=== PATIENT | female | born 1995 | race Caucasian/White ===

== ENCOUNTER 2016-07-26 09:02 | Emergency (ER) | payer BC, MEDICAID ==
[2016-07-26] MEDS ORDERED: DEXAMETHASONE 10 MG/ML VIAL PO STA (09:19)
[2016-07-26] MEDS ORDERED: DEXAMETHASONE 10 MG/ML VIAL ONE (09:21)
[2016-07-26] MEDS ORDERED: CHERRY SYRUP 10 ML UDC PO ONE (09:21)
== END 2016-07-26 09:50 | disposition home or self-care (01) ==
DX: J02.0 Streptococcal pharyngitis (principal); H92.02 Otalgia, left ear; J34.89 Other specified disorders of nose and nasal sinuses; Z87.891 Personal history of nicotine dependence
CPT/HCPCS: 87430; 99283; A9270

== ENCOUNTER 2018-06-08 15:23 | Emergency (ER) | payer BC, MEDICAID ==
[2018-06-08 15:37] VITALS: BP 123/64
[2018-06-08] MEDS ORDERED: TETANUS/DIPHTHERIA/PERTUSSIS 0.5 ML SYRINGE IM ONE (16:06)
--- NOTE | 2018-06-08 16:09 | ED Physician Documentation ---
PD HPI OPHTHO - Stated complaint Stated Complaint: LT EYE INJURY - Chief complaint Chief Complaint: Heent - History obtained from History obtained from: Patient - History of Present Illness Timing - onset: Last night Location: Left Contributing factors: Blunt trauma Similar symptoms before: Has not had sx before - Additional information Additional information: The patient is a 23-year-old female who hit her left eye on a bookshelf last night when she sat up abruptly in her bed. She presents now with ecchymosis in the left periorbital region. She denies any change in her visual acuity. She denies headache, nausea or vomiting. Tetanus status is unknown. 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 : None HEENT: None Psych: Depression Musculoskeletal: None Derm: None - Past Surgical History Past Surgical History: No - Present Medications Home Medications: Ambulatory Orders Medication Instructions Recorded Confirmed No Known Home Medications 06/08/18 06/08/18 - Allergies Allergies/Adverse Reactions: Allergies Allergy/AdvReac Type Severity Reaction Status Date / Time No Known Drug Allergies Allergy Verified 06/08/18 15:37 - Social History Does the pt smoke?: Yes Smoking Status: Current every day smoker Does the pt drink ETOH?: No Does the pt have substance abuse?: No - Immunizations Immunizations are current?: No Immunizations: TDAP >10years/unknown - POLST Patient has POLST: No PD ED PE NORMAL - Vitals Vital signs reviewed: Yes (Normal) - General General: Alert and oriented X 3, Well developed/nourished - HEENT HEENT: PERRL, EOMI, Other (Left periorbital ecchymosis, with abrasion of the left upper eyelid. There is lateral sub-scleral hemorrhage. Pupils are equal round reactive to light, extraocular movements intact. Visual acuity is 20/40 in each eye. (She normally wears glasses, but does not have them with her today.)) - Neck Neck: No bony TTP - Respiratory Respiratory: No respiratory distress - Derm Derm: No rash - Neuro Neuro: Alert and oriented X 3, No motor deficit, Normal speech Results - Vitals Vitals: Oxygen O2 Source Room air PD MEDICAL DECISION MAKING - ED course Complexity details: considered differential, d/w patient ED course: The patient's presentation is significant for contusion to the left eye, with abrasion of the left upper eyelid, and subscleral hemorrhage. There is no clinical evidence of intraocular injury, and no evidence of facial bone injury. Treatment in the emergency department included administration of tetanus booster. 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 Departure - Departure Disposition: 01 Home, Self Care Clinical Impression: Scleral hemorrhage of left eye Periorbital contusion of left eye Qualifiers: Encounter type: initial encounter Qualified Code(s): S05.12XA - Contusion of eyeball and orbital tissues, left eye, initial encounter Condition: Stable Instructions: ED Contusion Eye Follow-Up: [facility] [Provider Group] Comments: You can use Tylenol or ibuprofen if needed for discomfort. Follow-up with your primary physician, or return to the emergency department, if you develop increasing redness or swelling around your eye, impaired visual acuity, or otherwise worsening symptoms. Discharge Date/Time: 06/08/18 16:21
== END 2018-06-08 16:21 | disposition home or self-care (01) ==
LOC: ED 15:23
DX: H57.89 Other specified disorders of eye and adnexa (principal); S00.212A Abrasion of left eyelid and periocular area, initial encounter; W22.09XA Striking against other stationary object, initial encounter; Z23 Encounter for immunization
CPT/HCPCS: 90471; 99282; 99283

== ENCOUNTER 2019-07-06 22:04 | Emergency (ER) | payer BC, MEDICAID ==
[2019-07-06 22:14] VITALS: BP 119/81
[2019-07-06 22:30] LABS: RAPID STREP SCREEN Negative (Negative)
== END 2019-07-06 23:40 | disposition left against medical advice (07) ==
LOC: ED 22:04
DX: Z53.21 Procedure and treatment not carried out due to patient leaving prior to being seen by health care provider (principal)
CPT/HCPCS: 87070; 87430

== ENCOUNTER 2019-10-30 04:28 | Emergency (ER) | payer BC, MEDICAID ==
--- NOTE | 2019-10-30 05:01 | ED Physician Documentation ---
PD HPI ABD PAIN - Stated complaint Stated Complaint: ABD PX - Chief complaint Chief Complaint: Abd Pain - History obtained from History obtained from: Patient - History of Present Illness Timing - onset: Today Timing - duration: Minutes Timing - details: Abrupt onset, Still present Quality: Cramping, Sharp, Pain Location: LUQ Radiation: Chest Improved by: Other (nothing) Worsened by: Breathing Associated symptoms: No: Fever, Nausea, Vomiting, Hematemesis, Diarrhea, Constipation Similar symptoms before: Has not had sx before Recently seen: Not recently seen - Additional information Additional information: 24-year-old female got up to go to the bathroom this morning she was on the commode when she had the sudden onset of left upper quadrant abdominal pain that was severe. She states it was so severe she felt she was going to . She felt it was worse than labor. She has had some waves of pain and a continuous background pain it has taken her breath away. Review of Systems Constitutional: denies: Fever Eyes: denies: Decreased vision Ears: denies: Ear pain Nose: denies: Rhinorrhea / runny nose, Congestion Throat: denies: Sore throat Cardiac: denies: Chest pain / pressure, Palpitations Respiratory: reports: Dyspnea. denies: Cough GI: reports: Abdominal Pain. 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 : None HEENT: None Psych: Depression, Anxiety Musculoskeletal: None Derm: None - Past Surgical History Past Surgical History: No - Present Medications Home Medications: Ambulatory Orders Medication Instructions Recorded Confirmed No Known Home Medications 06/08/18 10/30/19 - Allergies Allergies/Adverse Reactions: Allergies Allergy/AdvReac Type Severity Reaction Status Date / Time No Known Drug Allergies Allergy Verified 10/30/19 04:49 - Social History Does the pt smoke?: Yes Smoking Status: Current every day smoker Does the pt drink ETOH?: No Does the pt have substance abuse?: No - Immunizations Immunizations are current?: No Immunizations: TDAP >10years/unknown - POLST Patient has POLST: No PD ED PE NORMAL - Vitals Vital signs reviewed: Yes (tachy and hypertensive ) - General General: Alert and oriented X 3, Well developed/nourished, Other (24-year-old female is whimpering in pain when she arrives to the emergency department and is extremely anxious. She feels like she might be getting ready to . She has had this pain in her left side) - HEENT HEENT: Atraumatic, PERRL - Neck Neck: Supple, no meningeal sign - Cardiac Cardiac: RRR, No murmur - Respiratory Respiratory: No respiratory distress, Clear bilaterally - Abdomen Abdomen: Normal bowel sounds, Soft, Non tender, Non distended, No organomegaly - Back Back: No CVA TTP, No spinal TTP - Derm Derm: Normal color, Warm and dry, No rash - Extremities Extremities: No deformity, No edema, No calf tenderness / cord - Neuro Neuro: Alert and oriented X 3, through operator 2-12 intact, No motor deficit, No sensory def icit, Normal speech Eye Opening: Spontaneous Motor: Obeys Commands Verbal: Oriented GCS Score: 15 - Psych Psych: Normal mood, Normal affect Results - Vitals Vitals: Vital Signs - 24 hr 10/30/19 10/30/19 04:35 05:53 Temperature 37.2 C 36.9 C Heart Rate 133 H 86 Respiratory 20 15 Rate Blood Pressure 151/76 H 137/94 H O2 Saturation 97 100 Oxygen O2 Source Room air - Labs Labs: Laboratory Tests 10/30/19 05:30 Urine Color YELLOW Urine Clarity CLEAR Urine pH 6.5 Ur Specific [place] 1.020 Urine Protein NEGATIVE Urine Glucose (UA) NEGATIVE Urine Ketones NEGATIVE Urine Occult Blood NEGATIVE Urine Nitrite NEGATIVE Urine Bilirubin NEGATIVE Urine Urobilinogen 0.2 (NORMAL) Ur Leukocyte Esterase NEGATIVE Ur Microscopic Review NOT INDICATED Urine Culture Comments NOT INDICATED Urine HCG, Qual POSITIVE - Rads (name of study) pelvic ultrasound Radiology: Prelim report reviewed Procedures - Bedside sono Bedside sono by EMP: With use of bedside ultrasound the left kidney is imaged it is sonographically nontender and there is obvious hydronephrosis. PD MEDICAL DECISION MAKING - ED course Complexity details: reviewed old records, reviewed results, re-evaluated patient, considered differential, d/w patient ED course: 24-year-old female presents to the emergency department whimpering in pain.She was very dramatic with her pain behavior. She really felt that she was about to . We were able to establish the presence of hydronephrosis shortly after her arrival. This relieved a lot of her fears, and she became less anxious. We offered treatment including pain medication and hydration which the patient refused as she has a deathly fear of needles. She refused pain medication stating she would be able to tolerate the pain, has a history of drug abuse and does not want to . A CT scan of the abdomen pelvis is ordered and a urinalysis is is obtained to check for . The is positive. Before the patient is able to go over to the CT scan her pain resolves. CT scan is not indicated. The patient is . Establishing the site of is imperative. An ultrasound of the pelvis is ordered. There is no fetus found. T he patient has refused blood draw for quantitative hCG. I have indicated to the patient the utility of the quantitative number and she is still refusing. After a third try to convince her to have her blood drawn she signed out AGAINST MEDICAL ADVICE. I am confident the hydronephrosis seen on bedside ultrasound represented the obstruction related to a kidney stone and the patient has had complete resolution of this symptom consistent with the stone passing. No further work- up is indicated no further treatment is indicated. Her early stage of is still an issue and she is left AGAINST MEDICAL ADVICE. Departure - Departure Disposition: 07 Against Medical Advice Clinical Impression: Flank pain, acute, Early stage of Condition: Stable Instructions: ED Stone Renal Passed, ED Abdominal Pain Rule Out Ectopic
[2019-10-30 05:35] LABS: BILIRUBIN,URINE NEGATIVE (NEGATIVE); GLUCOSE, URINE (UA) NEGATIVE (NEGATIVE); KETONES,URINE (UA) NEGATIVE (NEGATIVE); LEUKOCYTE ESTERASE, URINE NEGATIVE (NEGATIVE); NITRITE,URINE NEGATIVE (NEGATIVE); OCCULT BLOOD,URINE NEGATIVE (NEGATIVE); PH,URINE 6.5 PH (5.0-7.5); PROTEIN,URINE NEGATIVE (NEGATIVE); UROBILINOGEN,URINE 0.2 (NORMAL) E.U./dL (NORMAL)
[2019-10-30 05:36] LABS: CLARITY,URINE CLEAR (CLEAR); HCG UR QUAL POSITIVE
[2019-10-30 05:54] VITALS: BP 137/94
--- NOTE | 2019-10-30 07:54 | Ultrasound Report ---
PROCEDURE: OB First Trimester INDICATIONS: early abd pain OUTSIDE/PRIOR DATING DATA: Last menstrual period (LMP): Unknown. LMP-based estimated date of delivery (HAYDEN): Unknown. First dating scan (date and location): 10/30/2019. Estimated date of delivery (HAYDEN) from first dating scan: Not applicable. TECHNIQUE: Real-time scanning was performed of the fetus and maternal pelvic organs, with image documentation. COMPARISON: Ultrasound pelvis transvaginal 10/30/2019 FINDINGS: Sonographic images demonstrate no visualized intrauterine or extrauterine gestational sac. No free fl uid is identified. Left ovary measures 3.8 x 1.9 x 2.7 cm. Right ovary measures 3.3 x 1.3 x 2.0 cm. T hey are unremarkable. Vascular flow is identified. Limited images through the kidneys demonstrate no hydronephrosis. IMPRESSION: No visualized intraorbital extrauterine gestational sac is identified. No free fluid. Recommend corre lation with beta hCG levels and continued interval imaging follow-up as indicated. The above findings are concordant with preliminary report. Reviewed by: Liz Chan MD on 10/30/2019 7:52 AM PDT Approved by: Liz Chan MD on 10/30/2019 7:52 AM PDT Station ID: [id number]
--- NOTE | 2019-10-30 07:55 | Ultrasound Report ---
PROCEDURE: OB Transvaginal INDICATIONS: early abd pain TECHNIQUE: COMPARISON: Ultrasound OB 10/30/2019 FINDINGS: Real-time scanning was performed of the fetus and maternal pelvic organs, with image documentation. Sonographic images demonstrate no visualized intrauterine or extrauterine gestational sac. No free fl uid is identified. Left ovary measures 3.8 x 1.9 x 2.7 cm. Right ovary measures 3.3 x 1.3 x 2.0 cm. T hey are unremarkable. Vascular flow is identified. Limited images through the kidneys demonstrate no hydronephrosis. IMPRESSION: No visualized intrauterine or extrauterine gestational sac is identified. No free fluid. Recommend co rrelation with beta hCG levels and continued interval imaging follow-up as indicated. The above findings are concordant with preliminary report. Reviewed by: Liz Chan MD on 10/30/2019 7:54 AM PDT Approved by: Liz Chan MD on 10/30/2019 7:54 AM PDT Station ID: [id number]
== END 2019-10-30 07:56 | disposition left against medical advice (07) ==
LOC: ED 04:28
DX: O99.89 Other specified diseases and conditions complicating pregnancy, childbirth and the puerperium (principal); N13.2 Hydronephrosis with renal and ureteral calculous obstruction; O99.331 Smoking (tobacco) complicating pregnancy, first trimester; F17.200 Nicotine dependence, unspecified, uncomplicated; Z3A.00 Weeks of gestation of pregnancy not specified; Z53.20 Procedure and treatment not carried out because of patient's decision for unspecified reasons
CPT/HCPCS: 76801; 76817; 81001; 81003; 81025; 84702; 87086; 99284

== ENCOUNTER 2019-11-10 21:55 | Emergency (ER) | payer BC, MEDICAID ==
[2019-11-10 22:14] LABS: MUDS CUTOFF CONCENTRATIONS CUTOFF CONC BELOW:
[2019-11-10 22:17] LABS: BILIRUBIN,URINE NEGATIVE (NEGATIVE); GLUCOSE, URINE (UA) NEGATIVE (NEGATIVE); KETONES,URINE (UA) NEGATIVE (NEGATIVE); LEUKOCYTE ESTERASE, URINE NEGATIVE (NEGATIVE); NITRITE,URINE NEGATIVE (NEGATIVE); OCCULT BLOOD,URINE NEGATIVE (NEGATIVE); PH,URINE 7.5 PH (5.0-7.5); PROTEIN,URINE NEGATIVE (NEGATIVE); UROBILINOGEN,URINE 0.2 (NORMAL) E.U./dL (NORMAL)
[2019-11-10 22:20] LABS: CLARITY,URINE CLEAR (CLEAR)
[2019-11-10 22:29] LABS: AMPHETAMINE SCREEN,URINE POSITIVE (NEGATIVE); BENZODIAZEPINES SCREEN, URINE NEGATIVE (NEGATIVE); COCAINE SCREEN URINE NEGATIVE (NEGATIVE); METHADONE SCREEN, URINE NEGATIVE (NEGATIVE); METHAMPHETAMINES SCREEN, URINE NEGATIVE (NEGATIVE); OPIATE SCREEN, URINE NEGATIVE (NEGATIVE); OXYCODONE SCREEN, URINE NEGATIVE (NEGATIVE); PROPOXYPHENE SCREEN, URINE NEGATIVE (NEGATIVE); TRICYCLIC ANTIDEPRESSANT,URINE NEGATIVE (NEGATIVE)
[2019-11-11] MEDS ORDERED: diphenhydrAMINE INJ 50 MG/ML VIAL IM STA (00:40)
[2019-11-11 02:53] LABS: BASOPHILS % (AUTO) 0.2 %; EOSINOPHILS % (AUTO) 0.2 %; HGB - HEMOGLOBIN 13.9 g/dL (12.0-16.0); LYMPHOCYTES # (AUTO) 2.4 10^3/uL (1.5-3.5); LYMPHOCYTES % (AUTO) 19.4 %; MEAN CORPUSCULAR HGB CONC 34.2 g/dL (32.0-36.0); MEAN CORPUSCULAR VOLUME 93.5 fL (81.0-99.0); MEAN PLATELET VOLUME 9.2 fL (7.9-10.8); MONOCYTES # (AUTO) 0.9 10^3/uL (0.0-1.0); MONOCYTES % (AUTO) 6.9 %; NEUTROPHILS % (AUTO) 72.9 %; PLT - PLATELET COUNT 292 10^3/uL (130-450); RED BLOOD COUNT 4.34 10^6/uL (4.20-5.40); RED CELL DISTRIBUTION WIDTH 12.3 % (12.0-15.0); WHITE BLOOD COUNT 12.4 x10^3/uL (4.8-10.8)
[2019-11-11 03:04] LABS: ALBUMIN 4.2 g/dL (3.2-5.5); ALBUMIN/GLOBULIN RATIO 1.6 (1.0-2.2); BILIRUBIN,TOTAL 0.4 mg/dL (0.2-1.0); CALCIUM 8.7 mg/dL (8.5-10.3); CREATININE 0.6 mg/dL (0.4-1.0); TOTAL PROTEIN 6.9 g/dL (6.7-8.2)
[2019-11-11] MEDS ORDERED: METHOTREXATE 50 MG/2 ML MDV IM STA (05:10)
[2019-11-11 06:22] LABS: HGB - HEMOGLOBIN 13.4 g/dL (12.0-16.0)
[2019-11-11 08:12] VITALS: BP 116/69
[2019-11-11] MEDS ORDERED: ACETAMINOPHEN 325 MG TABLET PO STA (08:22)
--- NOTE | 2019-11-11 09:04 | Ultrasound Report ---
PROCEDURE: OB First Trimester INDICATIONS: Abd pain/. Positive urine test. Patient refused serum beta-hCG (refus ed blood draw) OUTSIDE/PRIOR DATING DATA: Last menstrual period (LMP): Unknown. LMP-based estimated date of delivery (HAYDEN): Unknown. First dating scan (date and location): 10/30/2019. Estimated date of delivery (HAYDEN) from first dating scan: Unknown. TECHNIQUE: Real-time scanning was performed of the fetus and maternal pelvic organs, with image documentation. COMPARISON: OB First Trimester ultrasound dated 10/30/2019 FINDINGS: There is no intrauterine noted. There is a complex heterogeneous mass involving the right adnexa with echogenic center subjacent to the right ovary, intimately related to the ovary, which was extremely tender to interrogate with the transvaginal probe, highly consistent with a righ t adnexal ectopic . It measured approximately 4.4 x 3.2 cm, with this measurement including the normal ovary at the periphery. There is no pole or heartbeat noted. There is a left ovarian corpus luteum measuring 1.8 x 1.8 cm. There is moderate free fluid in the pelvis with low-level internal echoes. IMPRESSION: Findings are highly consistent with ectopic of the right adnexa. A preliminary report with the above findings was provided at the time of the study by [facility]. At the time of preliminary interpretation, a telephone report was given by the preliminary interpreting radiologist to Dr. Ríos, of the Emergency Department, on 11/11/2019 at 0018 hours PDT. Reviewed by: Glenn Winters MD on 11/11/2019 8:03 AM KEILA Approved by: Glenn Winters MD on 11/11/2019 8:03 AM KEILA Station ID: [id number]
--- NOTE | 2019-11-11 21:09 | ED Physician Documentation ---
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 On the 10/29 visit, UA HCG (+) and US interpreted by radiology as: No visualized intrauterine or extrauterine gestational sac is identified. No free fluid. Recommend correlation with beta hCG levels and continued interval imaging follow-up as indicated. She subsequently signed AMA from ED, as patient refused blood tests, citing a fear of needles. Patient presents tonight due to RLQ/right hemipelvis pain that started 9 PM tonight while at home at rest. She says this pain is different from what she was experiencing on previous ED visit. Review of Systems Constitutional: denies: Fever, Chills, Sweats Cardiac: reports: Reviewed and negative Respiratory: reports: Reviewed and negative GI: reports: Abdominal Pain. denies: Nausea, Vomiting, Constipation, Diarrhea : reports: Frequency, LMP (10/09/2019), Now EGA. 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 : None HEENT: None Psych: Depression, Anxiety Musculoskeletal: None Derm: None - Past Surgical History Past Surgical History: No - Present Medications Home Medications: Ambulatory Orders Medication Instructions Recorded Confirmed No Known Home Medications 06/08/18 10/30/19 - Allergies Allergies/Adverse Reactions: Allergies Allergy/AdvReac Type Severity Reaction Status Date / Time No Known Drug Allergies Allergy Verified 11/10/19 21:58 - Social History Does the pt smoke?: Yes Smoking Status: Current every day smoker Does the pt drink ETOH?: No Does the pt have substance abuse?: No - Immunizations Immunizations are current?: No Immunizations: TDAP >10years/unknown - POLST Patient has POLST: No PD ED PE NORMAL - Vitals Vital signs reviewed: Yes - General General: Alert and oriented X 3, No acute distress, Well developed/nourished - Cardiac Cardiac: RRR, No murmur - Respiratory Respiratory: No respiratory distress, Clear bilaterally - Abdomen Abdomen: Soft, Non distended, Other (RLQ TTP without rebound or guarding) - Back Back: No CVA TTP - Derm Derm: Normal color, Warm and dry Results - Vitals Vitals: Oxygen O2 Source Room air - Labs Labs: Laboratory Tests 11/10/19 11/11/19 11/11/19 22:04 02:36 02:36 WBC 12.4 H RBC 4.34 Hgb 13.9 Hct 40.6 MCV 93.5 MCH 32.0 H MCHC 34.2 RDW 12.3 Plt Count 292 MPV 9.2 Neut # (Auto) 9.0 H Lymph # (Auto) 2.4 [place] # (Auto) 0.9 Eos # (Auto) 0.0 Baso # (Auto) 0.0 Absolute Nucleated RBC 0.00 Nucleated RBC % 0.0 Sodium 135 Potassium 3.5 Chloride 104 Carbon Dioxide 23 Anion Gap 8.0 BUN 11 Creatinine 0.6 Estimated GFR (MDRD) 124 Glucose 100 Calcium 8.7 Total Bilirubin 0.4 AST 22 ALT 25 Alkaline Phosphatase 46 Total Protein 6.9 Albumin 4.2 Globulin 2.7 Albumin/Globulin Ratio 1.6 Lipase 27 HCG, Quant Urine Color YELLOW Urine Clarity CLEAR Urine pH 7.5 Ur Specific [place] 1.010 Urine Protein NEGATIVE Urine Glucose (UA) NEGATIVE Urine Ketones NEGATIVE Urine Occult Blood NEGATIVE Urine Nitrite NEGATIVE Urine Bilirubin NEGATIVE Urine Urobilinogen 0.2 (NORMAL) Ur Leukocyte Esterase NEGATIVE Ur Microscopic Review NOT INDICATED Urine Culture Comments NOT INDICATED Urine Opiates Screen NEGATIVE Ur Oxycodone Screen NEGATIVE Urine Methadone Screen NEGATIVE Ur Propoxyphene Screen NEGATIVE Ur Barbiturates Screen NEGATIVE Ur Tricyclics Screen NEGATIVE Ur Phencyclidine Scrn NEGATIVE Ur Amphetamine Screen POSITIVE H U Methamphetamines Scrn NEGATIVE U Benzodiazepines Scrn NEGATIVE Urine Cocaine Screen NEGATIVE U Cannabinoids Screen NEGATIVE Blood Type 11/11/19 11/11/19 11/11/19 02:36 02:36 06:14 WBC RBC Hgb 13.4 Hct 38.1 MCV MCH MCHC RDW Plt Count MPV Neut # (Auto) Lymph # (Auto) [place] # (Auto) Eos # (Auto) Baso # (Auto) Absolute Nucleated RBC Nucleated RBC % Sodium Potassium Chloride Carbon Dioxide Anion Gap BUN Creatinine Estimated GFR (MDRD) Glucose Calcium Total Bilirubin AST ALT Alkaline Phosphatase Total Protein Albumin Globulin Albumin/Globulin Ratio Lipase HCG, Quant 5078.00 Urine Color Urine Clarity Urine pH Ur Specific [place] Urine Protein Urine Glucose (UA) Urine Ketones Urine Occult Blood Urine Nitrite Urine Bilirubin Urine Urobilinogen Ur Leukocyte Esterase Ur Microscopic Review Urine Culture Comments Urine Opiates Screen Ur Oxycodone Screen Urine Methadone Screen Ur Propoxyphene Screen Ur Barbiturates Screen Ur Tricyclics Screen Ur Phencyclidine Scrn Ur Amphetamine Screen U Methamphetamines Scrn U Benzodiazepines Scrn Urine Cocaine Screen U Cannabinoids Screen Blood Type A POSITIVE - Rads (name of study) first trimester US Radiology: Prelim report reviewed, See rad report PD MEDICAL DECISION MAKING - ED course Complexity details: reviewed old records, reviewed results, re-evaluated patient, considered differential, d/w patient ED course: US interpreted by radiologist as: "Findings are highly consistent with ectopic of the right adnexa." No IUP noted on US, but complex heterogeneous mass right adnexa is noted. HCG quantitative is 5078. Patient declined analgesics, both narcotic and nonnarcotic. There was an extensive delay in obtaining blood tests, as patient was exceedingly anxious about anything involving a needle (specifically, both blood draws as well as IM medications). Options for sedation (to facilitate blood draw) were thus limited by consideration of maintaining NPO status until it could be determined that patient would not need to go to OR (and this cannot be determined without HCG quantitative) and patient's refusal to have IM or SQ medications. ED RN tried to obtain blood work several times but patient would not keep still adequately to both allow for IV and not put ED RN at risk of needlestick to the RN. When blood was eventually obtained (but not IV), samples were too hemolyzed to allow for analysis. Patient repeatedly asked that further attempts not be undertaken until her boyfriend arrives to ED; there was significant delay in this, as well, as [place]. As the situation was at an impasse, I contacted Dr. Benitez to discuss the case with her; however, appropriate option for treatment cannot be determined until blood tests obtained and resulted (such as HCG quantitative, h/h, LFTs, bun/creatinine). Patient's boyfriend eventually arrived to ED and patient was less anxious, allowing for IV and blood tests. Results of tests then d/w Dr. Benitez, recommends methotrexate. I kept patient up to date on test results, the likely diagnosis of ectopic , and the treatment options and recommendations. Patient tells me she had already decided she intended to terminate the , and she was comfortable with the recommendation of methotrexate. I discussed with the patient the critical necessity to get follow-up blood draws and that these will be on a regular basis over the next few weeks until the HCG level is no longer detectable. I also explained to her that she might need more than one dose of methotrexate, depending on subsequent levels, and that she needs to immediately return to the emergency department at any time for worsening symptoms. She expresses understanding and says she will follow these recommendations including follow-up for serial blood draws. She says she would prefer to f/u with an ob/g yn group in [place]. As per my d/w Dr. Benitez and Dr. Benitez's suggestions, I directed patient to return to this ED in one week for redraw. Repeat h/h obtained prior to d/c, with minimal decrease in h/h from initial draw. Departure - Departure Disposition: 01 Home, Self Care Clinical Impression: Ectopic Qualifiers: Location of ectopic : ovarian Intrauterine status: without intrauterine Laterality: right Qualified Code(s): O00.201 - Right ovarian without intrauterine Condition: Good Instructions: ED Preg Ectopic Methotrexate Tx Follow-Up: Yesenia Benitez MD [Provider Admit Priv/Credential] - Comments: It is critical that you return to the emergency department if you feel worse at ay time, and it is equally important that you otherwise follow up with an pharmacovigilance scientist for further testing. You will need a retest of your hCG level in 4-7 days. If you cannot arrange this with an pharmacovigilance scientist in the outpatient setting, you can return to the emergency department for this test. Discharge Date/Time: 11/11/19 08:43
== END 2019-11-11 08:43 | disposition home or self-care (01) ==
LOC: ED 21:55
DX: O00.201 Right ovarian pregnancy without intrauterine pregnancy (principal); N83.12 Corpus luteum cyst of left ovary; F17.200 Nicotine dependence, unspecified, uncomplicated
CPT/HCPCS: 36415; 76801; 76817; 80053; 80306; 81003; 83690; 84702; 85014; 85018; 85025; 86900; 86901; 96372; 99284; A9270; J9250; 81001; 87086

== ENCOUNTER 2019-11-15 22:04 | Day surgery (SDC) | payer BC, MEDICAID ==
--- NOTE | 2019-11-15 22:21 | ED Physician Documentation ---
PD HPI FEMALE - Stated complaint Stated Complaint: AB PX - Chief complaint Chief Complaint: Abd Pain - History obtained from History obtained from: Patient - History of Present Illness Timing - onset: How many days ago (4) Timing - duration: Days Timing - details: Abrupt onset, Waxing and waning Pain level max: 8 Pain level max: 4 Associated symptoms: Back pain (right pelvic pain radiates to right low back), Pelvic pain. No: Fever, Vaginal bleeding, Vaginal discharge, Dysuria, Urinary frequency OB-DIRECTOR CAREER SERVICES History: G (4), P (1), Termination(s) (2) Similar symptoms before: Diagnosis (ectopic ) Recently seen: Emergency Dept - Additional information Additional information: T+R from this ED 4 days ago for ectopic , given methotrexate and in structed to return to this ED in 1 week but return if worse in any way. She returns at this time due to ongoing pain which is now radiating to right lower back (patient says the pain did not radiate previously), and waxing and waning pelvic pain that has become more frequent and more intense than when she was previously evaluated in this ED. Review of Systems Constitutional: reports: Reviewed and negative Eyes: reports: Reviewed and negative Ears: reports: Reviewed and negative Nose: reports: Reviewed and negative Throat: reports: Reviewed and negative Cardiac: reports: Reviewed and negative Respiratory: reports: Reviewed and negative GI: reports: Abdominal Pain, Nausea. denies: Abdominal Swelling, Vomiting : reports: LMP (10/09/2019), Now EGA (ectopic diagnosed on previous ED visit (11/11/2019)). denies: Dysuria, Frequency, Vaginal bleeding Skin: reports: Reviewed and negative Musculoskeletal: reports: Back pain (radiating from right hemipelvis) Neurologic: reports: Reviewed and negative PD PAST MEDICAL HISTORY - Past Medical History Cardiovascular: None Respiratory: None Neuro: None Endocrine/Autoimmune: None GI: None DIRECTOR CAREER SERVICES: None : None HEENT: None Psych: Depression, Anxiety Musculoskeletal: None Derm: None - Past Surgical History Past Surgical History: No - Present Medications Home Medications: Ambulatory Orders Medication Instructions Recorded Confirmed No Known Home Medications 06/08/18 10/30/19 - Allergies Allergies/Adverse Reactions: Allergies Allergy/AdvReac Type Severity Reaction Status Date / Time No Known Drug Allergies Allergy Verified 11/15/19 22:07 - Social History Does the pt smoke?: Yes Smoking Status: Current every day smoker Does the pt drink ETOH?: No Does the pt have substance abuse?: No - Immunizations Immunizations are current?: No Immunizations: TDAP >10years/unknown - POLST Patient has POLST: No PD ED PE NORMAL - Vitals Vital signs reviewed: Yes - General General: Alert and oriented X 3, Well developed/nourished, Other (episodic obvious painful distress at times during H+P, but appears comfortable (NAD) between episodes) - HEENT HEENT: Moist mucous membranes - Neck Neck: Supple, no meningeal sign - Cardiac Cardiac: RRR, No murmur - Respiratory Respiratory: No respiratory distress, Clear bilaterally - Abdomen Abdomen: Normal bowel sounds, Soft, Non distended - Back Back: No CVA TTP - Derm Derm: Normal color, Warm and dry, No rash - Extremities Extremities: No edema - Neuro Neuro: Alert and oriented X 3 PD ED PE EXPANDED - Abdomen Abdomen: Tender to palpation, Periumbilical, RLQ Results - Vitals Vitals: Vital Signs - 24 hr 11/15/19 11/16/19 11/16/19 22:07 00:21 01:35 Temperature 98.5 C H 36.9 C Heart Rate 122 H 92 130 H Respiratory 22 16 20 Rate Blood Pressure 141/93 H 122/84 H 145/100 H O2 Saturation 99 100 100 11/16/19 11/16/19 11/16/19 03:19 03:25 03:30 Temperature 36 C L 36.4 C L 36.4 C L Heart Rate 81 70 68 Respiratory 18 18 14 Rate Blood Pressure 113/67 104/66 103/63 O2 Saturation 100 100 99 11/16/19 11/16/19 11/16/19 03:35 03:40 03:45 Temperature 36.5 C 36.4 C L 36.5 C Heart Rate 65 66 69 Respiratory 17 20 16 Rate Blood Pressure 105/63 105/63 104/60 O2 Saturation 100 99 99 11/16/19 11/16/19 11/16/19 03:50 03:55 04:00 Temperature 36.5 C 36.4 C L 36.4 C L Heart Rate 68 68 75 Respiratory 16 16 16 Rate Blood Pressure 105/62 100/60 100/47 L O2 Saturation 100 100 100 11/16/19 11/16/19 11/16/19 04:15 04:28 04:45 Temperature 96.8 C H Heart Rate 69 68 70 Respiratory 16 16 16 Rate Blood Pressure 98/52 L 101/56 L 102/56 L O2 Saturation 100 100 100 11/16/19 11/16/19 05:37 07:04 Temperature 97.0 C H 97.5 C H Heart Rate 71 71 Respiratory 16 16 Rate Blood Pressure 101/58 L 101/58 L O2 Saturation 100 100 Oxygen O2 Source Room air - Labs Labs: Laboratory Tests 11/15/19 11/15/19 11/15/19 22:33 22:33 22:33 WBC 6.1 RBC 4.17 L Hgb 12.7 Hct 38.9 MCV 93.3 MCH 30.5 MCHC 32.6 RDW 12.0 Plt Count 265 MPV 8.5 Neut # (Auto) 3.3 Lymph # (Auto) 2.3 [place] # (Auto) 0.4 Eos # (Auto) 0.1 Baso # (Auto) 0.0 Absolute Nucleated RBC 0.00 Nucleated RBC % 0.0 Sodium 138 Potassium 3.5 Chloride 100 L Carbon Dioxide 27 Anion Gap 11.0 BUN 14 Creatinine 0.8 Estimated GFR (MDRD) 89 Glucose 89 Calcium 8.8 Total Bilirubin 0.5 AST 23 ALT 20 Alkaline Phosphatase 39 L Total Protein 7.1 Albumin 4.2 Globulin 2.9 Albumin/Globulin Ratio 1.4 Lipase 38 HCG, Quant 6396.00 PD MEDICAL DECISION MAKING - ED course Complexity details: reviewed results, re-evaluated patient, considered differential, d/w patient ED course: T+R 11/11/2019 with H+P, US, and blood tests (HCG 5000) c/w ectopic . Returns due to ongoing pain that has become more intense and frequent, now radiating to right lower back. HCG quantitavie over 6300 tonight. D/W Dr. Abel who came to ED and evaluated patient, will take patient to OR. Patient declined pain medications stronger than ofirmev during ED stay. Departure - Departure Disposition: ED Transfer to [facility] Clinical Impression: Ectopic Qualifiers: Location of ectopic : ovarian Intrauterine status: without intrauterine Laterality: right Qualified Code(s): O00.201 - Right ovarian without intrauterine Discharge Date/Time: 11/16/19 01:51
[2019-11-15] MEDS ORDERED: ACETAMINOPHEN 1,000 MG/100 ML 100 ML IV STA (22:35)
[2019-11-15 22:48] LABS: BASOPHILS % (AUTO) 0.2 %; EOSINOPHILS # (AUTO) 0.1 10^3/uL (0.0-0.7); EOSINOPHILS % (AUTO) 0.8 %; HGB - HEMOGLOBIN 12.7 g/dL (12.0-16.0); LYMPHOCYTES # (AUTO) 2.3 10^3/uL (1.5-3.5); LYMPHOCYTES % (AUTO) 37.9 %; MEAN CORPUSCULAR HEMOGLOBIN 30.5 pg (27.0-31.0); MEAN CORPUSCULAR HGB CONC 32.6 g/dL (32.0-36.0); MEAN CORPUSCULAR VOLUME 93.3 fL (81.0-99.0); MEAN PLATELET VOLUME 8.5 fL (7.9-10.8); MONOCYTES # (AUTO) 0.4 10^3/uL (0.0-1.0); MONOCYTES % (AUTO) 7.2 %; NEUTROPHILS # (AUTO) 3.3 10^3/uL (1.5-6.6); NEUTROPHILS % (AUTO) 53.6 %; PLT - PLATELET COUNT 265 10^3/uL (130-450); RED BLOOD COUNT 4.17 10^6/uL (4.20-5.40); WHITE BLOOD COUNT 6.1 x10^3/uL (4.8-10.8)
[2019-11-15 23:00] LABS: ALBUMIN 4.2 g/dL (3.2-5.5); ALBUMIN/GLOBULIN RATIO 1.4 (1.0-2.2); BILIRUBIN,TOTAL 0.5 mg/dL (0.2-1.0); CALCIUM 8.8 mg/dL (8.5-10.3); CREATININE 0.8 mg/dL (0.4-1.0); TOTAL PROTEIN 7.1 g/dL (6.7-8.2)
[2019-11-16] MEDS ORDERED: GLYCOPYRROLATE 1 MG/5 ML VIAL IVP ONE (01:08)
[2019-11-16] MEDS ORDERED: MIDAZOLAM 2 MG/2 ML VIAL IVP ONE (01:08)
[2019-11-16] MEDS ORDERED: ROCURONIUM 50 MG/5 ML VIAL IVP ONE (01:08)
[2019-11-16] MEDS ORDERED: METOCLOPRAMIDE 10 MG/2 ML VIAL IVP ONE (01:08)
[2019-11-16] MEDS ORDERED: KETOROLAC 30 MG/ML VIAL IVP ONE (01:08)
[2019-11-16] MEDS ORDERED: PROPOFOL 200 MG/20 ML VIAL IVP ONE (01:08)
[2019-11-16] MEDS ORDERED: NEOSTIGMINE 1 MG/1 ML 10 ML MDV IVP ONE (01:08)
[2019-11-16] MEDS ORDERED: DEXAMETHASONE 4 MG/ML VIAL IVP ONE (01:08)
[2019-11-16] MEDS ORDERED: fentaNYL 100 MCG/2 ML VIAL IVP ONE (01:08)
--- NOTE | 2019-11-16 01:28 | ANESTHESIA ---
Pre-Anesthesia VS, & Labs - Diagnosis right ectopic - Procedure laparoscopic right salphingectomy for treatment of ectopic Vital Signs: Temp Pulse Resp BP Pulse Ox 98.5 C H 92 16 122/84 H 100 11/15/19 22:07 11/16/19 00:21 11/16/19 00:21 11/16/19 00:21 11/16/19 00:21 Height 5 ft 3 in Weight (kg) 54.431 kg Body Mass Index 21.2 - NPO Other (sandwich at 2200, emergent case per surgeon) - Is Patient ?: Yes - Lab Results Current Lab Results: Laboratory Tests 11/15/19 22:33: HCG, Quant 6396.00 11/15/19 22:33: Sodium 138, Potassium 3.5, Chloride 100 L, Carbon Dioxide 27, Anion Gap 11.0, BUN 14, Creatinine 0.8, Estimated GFR (MDRD) 89, Glucose 89, Calcium 8.8, Total Bilirubin 0.5, AST 23, ALT 20, Alkaline Phosphatase 39 L, Total Protein 7.1, Albumin 4.2, Globulin 2.9, Albumin/Globulin Ratio 1.4, Lipase 38 11/15/19 22:33: WBC 6.1, RBC 4.17 L, Hgb 12.7, Hct 38.9, MCV 93.3, MCH 30.5, MCHC 32.6, RDW 12.0, Plt Count 265, MPV 8.5, Neut # (Auto) 3.3, Lymph # (Auto) 2.3, [place] # (Auto) 0.4, Eos # (Auto) 0.1, Baso # (Auto) 0.0, Absolute Nucleated RBC 0.00, Nucleated RBC % 0.0 Fish Bones: 11/15/19 22:33 11/15/19 22:33 Home Medications and Allergies No Known Home Medications 06/08/18 Allergies/Adverse Reactions: Allergies Allergy/AdvReac Type Severity Reaction Status Date / Time No Known Drug Allergies Allergy Verified 11/15/19 22:07 Anes History & Medical History - Anesthetic History Anesthesia Complications: reports: No previous complications - Medical History Cardiovascular: reports: None Pulmonary: reports: None Gastrointestinal: reports: None Urinary: reports: None Neuro: reports: None Musculoskeletal: reports: None Endocrine/Autoimmune: reports: None Blood Disorders: reports: None Skin: reports: None Smoking Status: Current every day smoker Exam General: Alert Dental: WNL Mouth Opening: Greater than 4 Fingerbreadths Mallampati classification: II Thyromental Distance: greater than 6 cm Respiratory: Lungs clear Cardiovascular: Regular rate Plan Anesthesia Type: General Consent for Procedure(s) Verified and Reviewed: Yes Code Status: Attempt Resuscitation ASA classification: 2-Mild systemic disease Is this case an emergency?: Yes
[2019-11-16] MEDS ORDERED: LIDOCAINE 1%-EPI 1:100000 20 ML MDV ONE (01:29)
[2019-11-16] MEDS ORDERED: BUPIVACAINE 0.25% PF 30 ML VIAL ONE (01:29)
[2019-11-16] MEDS ORDERED: LIDOCAINE 1%-EPI 1:100000 20 ML MDV SUBQ ONE (02:19)
[2019-11-16] MEDS ORDERED: BUPIVACAINE 0.25% PF 30 ML VIAL SUBQ ONE (02:19)
[2019-11-16] MEDS ORDERED: LACTATED RINGERS 1,000 ML IV ONE ×3 (02:23→03:54)
[2019-11-16] MEDS ORDERED: oxyCODONE 5 MG TABLET PO PRN (03:28)
[2019-11-16] MEDS ORDERED: ONDANSETRON 4 MG/2 ML VIAL IVP PRN (03:28)
[2019-11-16] MEDS ORDERED: HYDROcod/ACETAM 5/325 MG TABLET PO PRN (03:28)
[2019-11-16] MEDS ORDERED: LORazepam 2 MG/ML VIAL IVP PRN (03:28)
[2019-11-16] MEDS: HYDROmorphone 0.5 MG/0.5 ML SYRINGE IVP PRN ×5 (03:28→11:15)
--- NOTE | 2019-11-16 03:28 | OPERATIVE REPORT ---
Operative Report - General Procedure Date: 11/16/19 Planned Procedure: Dx Laproscopy probable right salpingectomy Procedure Performed: Dx Laproscopy right salpingectomy Post Op Diagnosis: Same - Procedure Note Primary Surgeon: Elier Abel MD Anesthesia Provider: Liliana High CRNA Anesthesia Technique: General ET tube IV Fluids (mL): 800 Estimated Blood Loss (mL): 5
--- NOTE | 2019-11-16 03:35 | PREOP HISTORY & PHYSICAL ---
DATE OF SERVICE: 11/16/2019 Physician: Elier Abel MD IDENTIFICATION: A 24-year-old G4, P1, AB2 female whose last menstrual period was 10/17/2019. CHIEF COMPLAINT: Right lower quadrant pain. HISTORY OF PRESENT ILLNESS: The patient states that about 11/04/2019, she developed right lower quadrant pain. She thought initially it was a kidney stone. She, however, left AMA because she was very anxious and concerned. She came back on 11/11/2019, at which time she had a quantitative hCG drawn, which was 5078. At that point, the suspicion of an ectopic was raised, and she was administered methotrexate. She states that her pain last afternoon and evening became worse. It now radiates to the back. She states it also crescendoed at this time. She is very anxious and nervous about the possibility of ectopic , and she would like to have some kind of final surgery. She has a history of having had a chlamydial infection in the past as well as IUD use. PAST MEDICAL HISTORY: The patient denies any hypertensive, diabetic or pulmonary disease. PAST SURGICAL HISTORY: D and C. CURRENT MEDICATIONS: None. ALLERGIES: NONE KNOWN. HABITS: The patient smokes 5-10 cigarettes per day. Denies use of alcohol, drugs or marijuana. SOCIAL HISTORY: The patient is single at this time. 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 FAMILY HISTORY: Positive for hypertension, [place], as well as stroke, cardiovascular disease. REVIEW OF SYSTEMS: Negative with the exception of some glasses as well as hearing deficits. PHYSICAL EXAMINATION VITAL SIGNS: Blood pressure 122/84, pulse 92, temperature is 98.5. HEENT: Pupils equal, round. Extraocular muscles are intact. Thyroid is not palpably enlarged. LUNGS: Lung valero are clear without rales or wheezes. BACK: No spinal or CVA tenderness noted. ABDOMEN: Very tender, particularly in the right lower quadrant. There is referred pain upon pressing on the left upper quadrant as well as right lower quadrant. This all radiates to the right lower quadrant. She has no CVA tenderness noted. PELVIC: Examination shows a cervix which was markedly tender; however, there appears to be a lot of anxiety involved in this. LABORATORY/DATA: Laboratories today shows a white count of 6.1, hemoglobin was 12.7, hematocrit was 38.9, platelets were 265. Electrolytes were all within normal limits. She had a quantitative hCG done on 11/11/2019 which was 5078. Her quantitative hCG today is 6396. Her previous ultrasound done on 11/11/2019 showed evidence of an adnexal mass. IMPRESSION: Right ectopic , which is apparently worsening at this time, certainly the possibility of her having a hemoperitoneum. Her vital signs are stable as well as her hemoglobin was stable; however, at this time she is requesting a permanent solution and she is getting progressively worse pain baig. PLAN: We will perform diagnostic laparoscopy with probable right salpingectomy. Risks and benefits of have been explained to the patient including those, but not limited to bleeding, infection, injury to pelvic organs which include uterus, tubes, ovaries, bowel, bladder, and ureters. She is aware of the potential for DVT with PE as well as postoperative adhesions, which could cause pain, bowel obstruction, infertility. TD: 11/16/2019 01:06 HANK
--- NOTE | 2019-11-16 04:31 | OPERATIVE REPORT ---
DATE OF SERVICE: 11/16/2019 Physician: Elier Abel MD PREOPERATIVE DIAGNOSIS: Right ectopic . POSTOPERATIVE DIAGNOSES: Right ectopic with hemoperitoneum. PROCEDURE PERFORMED: Diagnostic laparoscopy with right salpingectomy. SURGEON: Elier Abel MD. ASSOCIATE PROFESSOR OF VIOLIN: None. ANESTHESIA: Juanita High CRNA. ANESTHETIC: General via endotracheal tube. ESTIMATED BLOOD LOSS: 5 mL IV FLUIDS: 800 mL FINDINGS: Upon entering the abdominal cavity, there was evidence of hemoperitoneum over the bladder and the lower pelvic structures. At this point, these were removed and there was evidence of a bulgi ng large right ectopic . There was bleeding coming from the fimbriated end. The left fallo pian tube, there was some small krissy broad ligament adhesions, but the tube appeared to be free of di sease. The appendix also appeared to be normal. There was some adherent clot of the distal portion. The liver edge was also normal. PROCEDURE: Following adequate endotracheal anesthesia, patient was placed in the dorsal lithotomy po sition. At this point, she was prepped and draped in the usual fashion. A timeout was performed, at which concerns were addressed. A speculum was placed in the vagina. The cervix was visualized, gra sped with a single-tooth tenaculum and dilated to size 9 mm and then a uterine manipulator was placed . Dry Pan Operator's gloves were changed and the following local anesthesia with 1% lidocaine with 0.5% Gerald marcia with epinephrine. The incision was made. This was made in transverse fashion. A 5 mm trocar a nd sheath were placed on the first pass. Two additional ports were placed, both in left and right lo wer quadrants. Hemoperitoneum was observed and this was sucked with an senior scrum master aspirator. The rig ht fallopian tube was visualized and noted to have a large ectopic at the fimbriated end. There was some blood dripping through the os. The mesosalpinx was grasped with LigaSure, cauterized and transected all the way up to the cornu. This was then placed in the anterior cul-de-sac. At thi s point, the right lower quadrant incision was extended and then a 12 mm trocar and sheath were place d under direct visualization. At this point, the fallopian tube was placed in an EndoCatch and broug ht out through the incision. At this time, the pelvis was irrigated free of any clot. The appendix was visualized and noted to have adherent clot at the distal portion, but was not dilated and did not have any form of purulent material on the surface. The left fallopian tube was observed and the pos terior cul-de-sac on the posterior broad ligament on the left-hand side, there were some minimal smal l, filmy adhesions. At this point, the abdominal cavity was irrigated well and then a Pablo-Thomaso n was used to close the right lower quadrant incision. The CO2 was allowed to escape and all 3 incis ions were closed using 4-0 Monocryl subcuticular. These were then dressed with Dermabond. The HUMI catheter was then removed from the cervix. The patient tolerated the procedure well and was taken to recovery in stable condition. Sponge and needle counts were correct. TD: 11/16/2019 03:31
[2019-11-16] MEDS ORDERED: HYDROcod/ACETAM 10 MG/325 MG TABLET PO PRN (07:50)
[2019-11-16 14:33] VITALS: BP 108/60
== END 2019-11-16 14:00 | disposition home or self-care (01) ==
LOC: ED 22:04 → SDS 11-16 01:07 → MS3 11-16 03:45 → SDS 11-16 14:00
PROVIDERS: ATTEND Obstetrics & Gynecology
PROC: 0UT54ZZ Resection of Right Fallopian Tube, Percutaneous Endoscopic Approach (ICD-10-PCS; 2019-11-16)
PROC: 10T24ZZ Resection of Products of Conception, Ectopic, Percutaneous Endoscopic Approach (ICD-10-PCS; principal; 2019-11-16 02:00)
DX: O00.101 Right tubal pregnancy without intrauterine pregnancy (principal); K66.1 Hemoperitoneum; Z86.19 Personal history of other infectious and parasitic diseases; F17.210 Nicotine dependence, cigarettes, uncomplicated; Z97.5 Presence of (intrauterine) contraceptive device
CPT/HCPCS: 36415; 59151; 80053; 83690; 84702; 85025; 96374; 99285; A9270; J0131; J1170; J2765; J7120

== ENCOUNTER 2020-02-01 00:12 | Emergency (ER) | payer BC, MEDICAID ==
[2020-02-01] MEDS ORDERED: SODIUM CHLORIDE 0.9% 1,000 ML IV STA (01:02)
[2020-02-01 01:08] LABS: BILIRUBIN,URINE NEGATIVE (NEGATIVE); GLUCOSE, URINE (UA) NEGATIVE (NEGATIVE); KETONES,URINE (UA) NEGATIVE (NEGATIVE); LEUKOCYTE ESTERASE, URINE NEGATIVE (NEGATIVE); NITRITE,URINE NEGATIVE (NEGATIVE); OCCULT BLOOD,URINE NEGATIVE (NEGATIVE); PROTEIN,URINE NEGATIVE (NEGATIVE); UROBILINOGEN,URINE 0.2 (NORMAL) E.U./dL (NORMAL)
[2020-02-01 01:10] LABS: CLARITY,URINE HAZY (CLEAR); HCG UR QUAL NEGATIVE
[2020-02-01 01:13] LABS: AMORPHOUS SEDIMENT,UR Few /LPF; BACTERIA,URINE Few /HPF (None Seen); RBC,URINE 0-5 /HPF (0-5); SQUAMOUS EPITHELIAL CELL,UR FEW Squamous (<= Few)
[2020-02-01 01:32] LABS: BASOPHILS % (AUTO) 0.2 %; EOSINOPHILS # (AUTO) 0.1 10^3/uL (0.0-0.7); EOSINOPHILS % (AUTO) 0.8 %; HGB - HEMOGLOBIN 13.1 g/dL (12.0-16.0); LYMPHOCYTES # (AUTO) 1.1 10^3/uL (1.5-3.5); LYMPHOCYTES % (AUTO) 8.5 %; MEAN CORPUSCULAR HEMOGLOBIN 31.7 pg (27.0-31.0); MEAN CORPUSCULAR HGB CONC 32.8 g/dL (32.0-36.0); MEAN CORPUSCULAR VOLUME 96.9 fL (81.0-99.0); MEAN PLATELET VOLUME 9.3 fL (7.9-10.8); MONOCYTES # (AUTO) 1.4 10^3/uL (0.0-1.0); MONOCYTES % (AUTO) 10.9 %; NEUTROPHILS # (AUTO) 10.1 10^3/uL (1.5-6.6); NEUTROPHILS % (AUTO) 79.1 %; PLT - PLATELET COUNT 239 10^3/uL (130-450); RED BLOOD COUNT 4.13 10^6/uL (4.20-5.40); RED CELL DISTRIBUTION WIDTH 12.3 % (12.0-15.0); WHITE BLOOD COUNT 12.8 x10^3/uL (4.8-10.8)
[2020-02-01] MEDS ORDERED: KETOROLAC 30 MG/ML VIAL IVP STA (01:43)
[2020-02-01] MEDS ORDERED: HYDROmorphone 1 MG/ML CARPUJECT IVP STA (01:43)
[2020-02-01 01:45] LABS: ALBUMIN 4.1 g/dL (3.2-5.5); ALBUMIN/GLOBULIN RATIO 1.5 (1.0-2.2); BILIRUBIN,TOTAL 0.3 mg/dL (0.2-1.0); CALCIUM 9.2 mg/dL (8.5-10.3); CREATININE 0.6 mg/dL (0.4-1.0); TOTAL PROTEIN 6.8 g/dL (6.7-8.2)
--- NOTE | 2020-02-01 01:46 | ED Physician Documentation ---
History of Present Illness - Stated complaint Stated Complaint: ABD PX - Chief complaint Chief Complaint: Abd Pain - History obtained from History obtained from: Patient - Additonal information Additional information: Patient comes emergency department complaining of right flank pain that started approximately 22 hours ago. She states it feels just like when she had her ectopic in November of this year. She states that at that time she had the same kind of right flank and pelvic pain and was suspected to have a kidney stone at that time. However, work-up revealed that the patient was and she was found to have an ectopic. The patient ended up going undergoing resection of her right fallopian tube. She states she also has scarring on the left from prior PID. Patient denies any vaginal bleeding. No discharge that is unusual. No fevers. The patient's last menstrual period was on January 10 and she states that it was actually heavy period. She has not checked a test. She denies any nausea or vomiting. No dysuria. No trauma. No other complaints at this time. Review of Systems Ten Systems: 10 systems reviewed and negative Constitutional: reports: Reviewed and negative Eyes: reports: Reviewed and negative Ears: reports: Reviewed and negative Nose: reports: Reviewed and negative Throat: reports: Reviewed and negative Cardiac: reports: Reviewed and negative Respiratory: reports: Reviewed and negative GI: reports: Abdominal Pain. denies: Nausea, Constipation, Diarrhea, Bloody / black stool : reports: LMP (01/11/20). 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 RANGE OPERATOR: None : None HEENT: None Psych: Depression, Anxiety Musculoskeletal: None Derm: None - Past Surgical History Past Surgical History: No - Present Medications Home Medications: Ambulatory Orders Medication Instructions Recorded Confirmed HYDROcod/ACETAM 5/325 [[place] 5/325] 1 - 2 ea PO Q6H PRN #8 tablet 02/01/20 - Allergies Allergies/Adverse Reactions: Allergies Allergy/AdvReac Type Severity Reaction Status Date / Time No Known Drug Allergies Allergy Verified 11/15/19 22:07 - Social History Does the pt smoke?: Yes Smoking Status: Current every day smoker Does the pt drink ETOH?: No Does the pt have substance abuse?: No - Immunizations Immunizations are current?: No Immunizations: TDAP >10years/unknown - POLST Patient has POLST: No PD ED PE NORMAL - Vitals Vital signs reviewed: Yes - General General: Alert and oriented X 3, No acute distress (Patient appears moderately uncomfortable.), Well developed/nourished - HEENT HEENT: Atraumatic, PERRL, EOMI, Moist mucous membranes - Neck Neck: Supple, no meningeal sign - Cardiac Cardiac: RRR, No murmur, Strong equal pulses - Respiratory Respiratory: No respiratory distress, Clear bilaterally - Abdomen Abdomen: Soft, Non distended, Other (Moderate tenderness bilateral lower quadrants and suprapubic area. No rebound or guarding. Right flank tenderness also noted.) - Back Back: Other (Right CVA tenderness) - Derm Derm: Normal color, Warm and dry, No rash - Extremities Extremities: No deformity, No edema, No calf tenderness / cord - Neuro Neuro: Alert and oriented X 3, Other (Grossly normal) - Psych Psych: Normal mood, Normal affect Results - Vitals Vitals: Oxygen O2 Source Room air - Labs Labs: Laboratory Tests 02/01/20 02/01/20 02/01/20 01:00 01:25 01:25 WBC 12.8 H RBC 4.13 L Hgb 13.1 Hct 40.0 MCV 96.9 MCH 31.7 H MCHC 32.8 RDW 12.3 Plt Count 239 MPV 9.3 Neut # (Auto) 10.1 H Lymph # (Auto) 1.1 L [place] # (Auto) 1.4 H Eos # (Auto) 0.1 Baso # (Auto) 0.0 Absolute Nucleated RBC 0.00 Nucleated RBC % 0.0 Sodium 137 Potassium 4.0 Chloride 104 Carbon Dioxide 26 Anion Gap 7.0 BUN 13 Creatinine 0.6 Estimated GFR (MDRD) 124 Glucose 108 H Calcium 9.2 Total Bilirubin 0.3 AST 20 ALT 20 Alkaline Phosphatase 47 Total Protein 6.8 Albumin 4.1 Globulin 2.7 Albumin/Globulin Ratio 1.5 Lipase 33 Urine Color YELLOW Urine Clarity HAZY Urine pH 7.0 Ur Specific [place] 1.020 Urine Protein NEGATIVE Urine Glucose (UA) NEGATIVE Urine Ketones NEGATIVE Urine Occult Blood NEGATIVE Urine Nitrite NEGATIVE Urine Bilirubin NEGATIVE Urine Urobilinogen 0.2 (NORMAL) Ur Leukocyte Esterase NEGATIVE Urine RBC 0-5 Urine WBC 0-3 Ur Squamous Epith Cells FEW Squamous Amorphous Sediment Few Urine Bacteria Few Ur Microscopic Review INDICATED Urine Culture Comments NOT INDICATED Urine HCG, Qual NEGATIVE - Rads (name of study) CT abd/pelvis Radiology: Prelim report reviewed PD MEDICAL DECISION MAKING - ED course Complexity details: reviewed results, re-evaluated patient, considered differential, d/w patient ED course: Patient was worked up with labs, urinalysis, and CT of the abd/pelvis. She was treated with IV fluids, a small dose of Dilaudid, and Toradol. CT prelim report showed a collapsing follicle with mild free fluid, but no other pathology. Remainder of work-up was unremarkable. D/w pt that no emergent cause of her pain has been identified, though follicular structure may be the cause of the pt's sx. We have discussed home management of the sx, as well as the usual indications for return. Departure - Departure Disposition: 01 Home, Self Care Clinical Impression: Ruptured ovarian cyst Condition: Stable Instructions: Cyst Ruptured Ovarian Tx, ED Cyst Ovarian Prescriptions: HYDROcod/ACETAM 5/325 [[place] 5/325] 1 - 2 ea PO Q6H PRN #8 tablet PRN Reason: Pain Comments: You are not today. Your urinalysis looks good. The CT scan shows a normal appendix and a right ovarian cyst that is collapsing, which is a sign of rupture. It is not uncommon for cysts to form on the ovaries. Sometimes the rupture and do not reform, but it is very common for cyst to come back, even after they have ruptured. You may take the pain medication as needed. Please follow-up with your construction trades contractor for any further concerns. Discharge Date/Time: 02/01/20 03:49
[2020-02-01] MEDS ORDERED: IOVERSOL 320 100 ML VIAL IVP ONE ×2 (02:27→02:46)
[2020-02-01 03:50] VITALS: BP 114/75
--- NOTE | 2020-02-01 10:53 | CT Report ---
PROCEDURE: Abdomen/Pelvis W INDICATIONS: RLQ abd pain CONTRAST: IV CONTRAST: Optiray 320 ml: 100 PO CONTRAST: *NO PO CONTRAST TECHNIQUE: After the administration of IV contrast, 5 mm thick sections acquired from the diaphragms to the symp hysis. 5 mm thick coronal and sagittal reformats were acquired. For radiation dose reduction, the f ollowing was used: automated exposure control, adjustment of mA and/or kV according to patient size. COMPARISON: None. FINDINGS: Image quality: Excellent. ABDOMEN: Lung bases: Lung bases are clear. Heart size is normal. Solid organs: Liver and spleen are normal in size and enhancement. Gallbladder is normal. Biliary system is non dilated. Pancreas enhances normally. No adrenal nodules. Kidneys demonstrate normal size and enhancement, without hydronephrosis. Peritoneum and bowel: Appendix is normal. Stomach is distended and filled with debris. Bowel loops d emonstrate normal wall thickness and caliber. No free fluid or air. Nodes and vessels: No retroperitoneal or mesenteric adenopathy by size criteria. Aorta and inferior vena cava are normal in size. Miscellaneous: No ventral hernias. PELVIS: Genitourinary: Bladder wall thickness is normal. Uterus is normal. Ovaries are unremarkable. Contra st follicle in right ovary is noted. Trace amount of free fluid. Miscellaneous: No inguinal hernias or adenopathy. Bones: No suspicious bony lesions. No vertebral body compression fractures. IMPRESSION: 1. Normal appendix. 2. Normal uterus. Ovaries are unremarkable. There is a trace amount of free fluid in pelvis. No significant discrepancy with the preliminary ccu nurse radiology report. Reviewed by: Maira Clemens MD on 02/01/2020 10:51 AM PDT Approved by: Maira Clemens MD on 02/01/2020 10:51 AM PDT Station ID: [id number]
== END 2020-02-01 03:49 | disposition home or self-care (01) ==
LOC: ED 00:12
DX: N83.209 Unspecified ovarian cyst, unspecified side (principal); F17.200 Nicotine dependence, unspecified, uncomplicated
CPT/HCPCS: 36415; 74177; 80053; 81001; 81025; 83690; 85025; 96361; 96374; 99284; J1170; Q9967; 81003; 87086

== ENCOUNTER 2020-07-31 22:19 | Emergency (ER) | payer OTHER, BC, MEDICAID ==
--- NOTE | 2020-07-31 22:56 | ED Physician Documentation ---
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) Timing - details: Abrupt onset Associated symptoms: No: Weakness, Numbness Similar symptoms before: Has not had sx before Review of Systems Constitutional: denies: Fever, Chills Nose: denies: Rhinorrhea / runny nose, Congestion Throat: denies: Sore throat Respiratory: denies: Cough : reports: Now EGA (17 wks) Neurologic: denies: Focal weakness, Numbness PD PAST MEDICAL HISTORY - Past Medical History Past Medical History: Yes Cardiovascular: None Respiratory: None Neuro: None Endocrine/Autoimmune: None GI: None 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 HEENT: None Psych: Depression, Anxiety Musculoskeletal: None Derm: None - Past Surgical History Past Surgical History: Yes /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: Other - Allergies Allergies/Adverse Reactions: Allergies Allergy/AdvReac Type Severity Reaction Status Date / Time No Known Drug Allergies Allergy Verified 07/31/20 22:30 - Social History Does the pt smoke?: Yes Smoking Status: Current every day smoker Does the pt drink ETOH?: No Does the pt have substance abuse?: No - Immunizations Immunizations are current?: Yes Immunizations: TDAP current <10years - POLST Patient has POLST: No PD ED PE NORMAL - Vitals Vital signs reviewed: Yes - General General: Alert and oriented X 3, Well developed/nourished, Other (seems anxious about the finger being touched. Bandaid on it and she wants to remove it herself slowly. ) - Extremities Extremities: Other (laceration just at distal corner of nailbed left index finger. Lac through distal corner of nail. Nychial fold area normal. Nailbed margin not misaligned. No FB nor bleeding. ) - Neuro Neuro: No motor deficit, No sensory deficit Results - Vitals Vitals: Vital Signs - 24 hr 07/31/20 07/31/20 07/31/20 22:25 22:34 23:29 Temperature 36.9 C 36.9 C 36.9 C Heart Rate 99 99 88 Respiratory 16 16 16 Rate Blood Pressure 141/88 H 141/88 H 128/82 H O2 Saturation 99 99 99 Oxygen O2 Source Room air PD MEDICAL DECISION MAKING - ED course Complexity details: considered differential (small lac that can be steri- stripped. She did not want us to touch it due to tenderness. So I gave her the steri-strips to apply herself. ), d/w patient Departure - Departure Disposition: 01 Home, Self Care Clinical Impression: Finger laceration Qualifiers: Encounter type: initial encounter Finger: index finger Damage to nail status: with damage Foreign body presence: without foreign body Laterality: left Qualified Code(s): S61.311A - Laceration without foreign body of left index finger with damage to nail, initial encounter Condition: Stable Record reviewed to determine appropriate education?: Yes Instructions: ED Laceration Ext Sutr Stap Tape Comments: 1 to get the Band-Aid fully off, be sure to clean the wound a little bit with soap and water gently and then once its dry, place Steri-Strip on it to help protect the edge of the nail. That corner of the nail will loosen and fall off over the next several days or week or so. You can hold it in place for now until it loosens more comfortably. Otherwise the wound should heal up well without needing specific intervention. Tylenol every 4-6 hours if needed for pain. You can use ibuprofen or naproxen for another 2 to 3 weeks when needed but none after 20 weeks of . Tylenol can be used through all of . Recheck if signs of infection otherwise activity as tolerated with the finger. Discharge Date/Time: 07/31/20 23:31
[2020-07-31 23:30] VITALS: BP 128/82
== END 2020-07-31 23:31 | disposition home or self-care (01) ==
LOC: ED 22:19
DX: S61.311A Laceration without foreign body of left index finger with damage to nail, initial encounter (principal); W26.0XXA Contact with knife, initial encounter; Y93.G1 Activity, food preparation and clean up; Y99.0 Civilian activity done for income or pay; F17.200 Nicotine dependence, unspecified, uncomplicated
CPT/HCPCS: 1040M

== ENCOUNTER 2020-08-15 21:57 | Emergency (ER) | payer BC, MEDICAID ==
--- OUTSIDE RECORDS SUMMARY | 2020-08-15 22:00 | EXTERNAL MEDICAL SUMMARY RPT | Continuity of Care Document ---
:1995 Demographics Phone Unavailable Preferred Language Austrian Marital Status Unknown Jainism Affiliation Unknown Race Unknown Ethnic Group Unknown Author Organization [facility] Address [address] [phone] Phone Care Team Providers Name Role Phone Hogge Unavailable Unavailable Procedures date description facility [id number] [facility] date description facility [id number] [facility] Social History date description facility [id number]
--- OUTSIDE RECORDS SUMMARY | 2020-08-15 22:05 | EXTERNAL MEDICAL SUMMARY RPT | Continuity of Care Document ---
:1995 Demographics Phone Unavailable Preferred Language Uruguayan Marital Status Unknown Scientology Affiliation Unknown Race Unknown Ethnic Group Unknown Author Organization [facility] Address [address] [phone] Phone Care Team Providers Name Role Phone Hogge Unavailable Unavailable Procedures date description facility [id number] [facility] date description facility [id number] [facility] Social History date description facility [id number]
[2020-08-16 01:14] VITALS: BP 132/81
--- NOTE | 2020-08-16 01:36 | ED Physician Documentation ---
History of Present Illness - Stated complaint Stated Complaint: R LEG SWELLING - Chief complaint Chief Complaint: General - History obtained from History obtained from: Patient - Additonal information Additional information: Patient presents emergency department chief complaint of right lower extremity swelling. She is 19 weeks and states that a couple of days ago, both of her legs were swollen, but today, it is only seem to be the right. Patient was originally wearing pressure stockings, but stopped wearing them a couple days ago. Patient denies any history of DVT. She has had a sharp pain in her posterior right buttock, which seems to connect with her right hip. Patient states the pain in her hip does not feel like the pain in her leg. No numbness or tingling. No problems with the . No other complaints at this time. Review of Systems Ten Systems: 10 systems reviewed and negative Constitutional: reports: Reviewed and negative Eyes: reports: Reviewed and negative Ears: reports: Reviewed and negative Nose: reports: Reviewed and negative Throat: reports: Reviewed and negative Cardiac: reports: Reviewed and negative Respiratory: reports: Reviewed and negative GI: reports: Reviewed and negative : reports: Reviewed and negative Skin: reports: Reviewed and negative Musculoskeletal: reports: Joint pain, Extremity swelling Neurologic: reports: Reviewed and negative Psychiatric: reports: Reviewed and negative Endocrine: reports: Reviewed and negative Immunocompromised: reports: Reviewed and negative PD PAST MEDICAL HISTORY - Past Medical History Past Medical History: Yes Cardiovascular: None Respiratory: None Neuro: None Endocrine/Autoimmune: None GI: None 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 HEENT: None Psych: Depression, Anxiety Musculoskeletal: None Derm: None - Past Surgical History Past Surgical History: Yes /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 - Present Medications Home Medications: Ambulatory Orders Medication Instructions Recorded Confirmed Pnv No.95/Ferrous Fum/Folic AC 1 tab PO DAILY 08/15/20 08/15/20 [ Caplet] - Allergies Allergies/Adverse Reactions: Allergies Allergy/AdvReac Type Severity Reaction Status Date / Time No Known Drug Allergies Allergy Verified 07/31/20 22:30 - Social History Does the pt smoke?: Yes Smoking Status: Current every day smoker Does the pt drink ETOH?: No Does the pt have substance abuse?: No - Immunizations Immunizations are current?: Yes Immunizations: TDAP current <10years - POLST Patient has POLST: No PD ED PE NORMAL - Vitals Vital signs reviewed: Yes - General General: Alert and oriented X 3, No acute distress - HEENT HEENT: PERRL - Neck Neck: Supple, no meningeal sign - Cardiac Cardiac: RRR, No murmur, Strong equal pulses - Respiratory Respiratory: No respiratory distress, Clear bilaterally - Abdomen Abdomen: Soft, Non tender, Other (Appropriately gravid.) - Back Back: Other (No spinal tenderness palpation. Tenderness over right SI joint without obvious popping or clicking.) - Derm Derm: Normal color, Warm and dry, No rash - Extremities Extremities: No deformity, Other (Edema right lower leg, ankle, and foot compared to left. No calf tenderness.) - Neuro Neuro: Alert and oriented X 3 - Psych Psych: Normal mood, Normal affect Results - Vitals Vitals: Vital Signs - 24 hr 08/15/20 08/16/20 08/16/20 22:09 01:13 02:15 Temperature 37.0 C Heart Rate 100 101 H Respiratory 17 16 16 Rate Blood Pressure 134/82 H 132/81 H O2 Saturation 99 96 Oxygen O2 Source Room air - Rads (name of study) US RLE Radiology: Final report received, EMP read indepedently, See rad report (No DVT; pseudoaneurysm.) PD MEDICAL DECISION MAKING - ED course Complexity details: reviewed results, re-evaluated patient, considered differential, d/w patient ED course: Patient was worked up with ultrasound of her right lower extremity, which showed no DVT. Her heart tones in the emergency department were appropriate. I discussed symptomatic management with the patient, as well as her need for follow-up. She does have a 20-week ultrasound coming up on August 22. We have discussed the usual indications for return. Departure - Departure Disposition: 01 Home, Self Care Clinical Impression: Dependent edema Qualifiers: Weeks of gestation: 19 weeks Qualified Code(s): Z3A.19 - 19 weeks gestation of Condition: Stable Instructions: ED Care Comments: Your ultrasound shows no blood clot. It is not clear exactly what has caused the swelling in your right leg. Given that swelling is common in , both due to the hormonal changes and to the increasingly enlarging uterus compressing the veins that drain the legs, it is very possible that the swelling is due to the itself. The position of your baby may be such that the left veins are not as compressed as the right veins, causing less swelling on the left than the right. You can try laying on your left side when you are in bed, to see if this helps with the swelling. Also, please continue to use the compression stockings. Please follow-up with your OB doctor as planned and follow-up for the ultrasound next week as scheduled. You may take Tylenol as needed for your hip pain. Also try stretching to help relieve the pressure on the area. Discharge Date/Time: 08/16/20 02:28
--- NOTE | 2020-08-16 07:40 | Ultrasound Report ---
PROCEDURE: Duplex Ext Veins Right INDICATIONS: swelling R leg TECHNIQUE: Real-time imaging, as well as color and pulse Doppler interrogation, were performed of the lower extr emity deep veins from the inguinal ligament to the popliteal fossa. COMPARISON: None. FINDINGS: The deep veins are normally compressible, and free of intraluminal thrombus. Color and pu lse Doppler demonstrate normal phasic intraluminal flow. There is normal augmentation response to di stal compression maneuver. 1.4 x 0.2 x 2.2 cm septated cystic lesion in the right popliteal fossa which may have some internal v ascular flow possibly representing partially thrombosed pseudoaneurysm. IMPRESSION: No evidence of deep vein thrombosis involving the right lower extremity. Possible 1.4 x 2.0 x 2.2 cm partially thrombosed pseudoaneurysm in the right popliteal fossa. Reviewed by: Raysa Hernandez MD, PhD on 08/16/2020 7:38 AM PDT Approved by: Raysa Hernandez MD, PhD on 08/16/2020 7:38 AM PDT Station ID: [id number]
== END 2020-08-16 02:28 | disposition home or self-care (01) ==
LOC: ED 21:57
DX: O99.891 Other specified diseases and conditions complicating pregnancy (principal); R60.0 Localized edema; M25.551 Pain in right hip; O99.332 Smoking (tobacco) complicating pregnancy, second trimester; F17.200 Nicotine dependence, unspecified, uncomplicated; Z3A.19 19 weeks gestation of pregnancy
CPT/HCPCS: 99283; 99284

== ENCOUNTER 2020-08-22 13:36 | Outpatient (CLI) | payer BC, MEDICAID ==
--- NOTE | 2020-08-22 15:38 | Ultrasound Report ---
PROCEDURE: OB Detailed Eval INDICATIONS: SUPERVISION, NORMAL , MULTIPAROUS OUTSIDE/PRIOR DATING DATA: Last menstrual period (LMP): Not available. LMP-based estimated date of delivery (HAYDEN): Not available. First dating scan (date and location): 05/15/2020. Estimated date of delivery (HAYDEN) from first dating scan: 01/07/2021. TECHNIQUE: Real-time scanning was performed of the fetus, with image documentation and biometric measurements. Endovaginal scanning: Not needed COMPARISON: Reportedly 05/15/2020 first OB ultrasound but images not available for review.. FINDINGS: General: A single living intrauterine gestation is present. Presentation: Breech Placenta: Placental position is anterior, without previa. Amniotic fluid index: 12.9 cm, normal for gestational age. heart rate: 157 beats per minute. Maternal cervical canal: 3.7 cm long; normal length is 2.5 cm or more. biometrics: Biparietal diameter: 4.5 cm, 19 weeks 4 days Head circumference: 17.2 cm, 19 weeks 5 days Abdominal circumference: 14.6 cm, 19 weeks 6 days Femur length: 3.0 cm, 19 weeks 3 days Estimated gestational age from initial scan: 20 weeks 2 days. Composite gestational age from present scan: 19 weeks 4 days Estimated weight and percentile: 307 g, 17th percentile Measurement variability in biometric dating: +/- 10 days from 12-20 weeks gestation, +/- 2 weeks from 20-30 weeks gestation, +/- 3 weeks at 30 weeks gestation or later. Anatomic survey: Neuro: Ventricles are normal at less than 10 mm. Cisterna magna is normal at 3-11 mm. Cerebellum i s normal in size and morphology. Nuchal skin fold: Normal at less than 6 mm between 14 and 20 weeks gestational age. Face: Nose and lips, facial profile are normal. Spine: No evidence for spina bifida. Heart: 4-chambered heart is present, with normal ventricular outflow tracts. Diaphragm: Diaphragm is intact. Stomach: Left-sided stomach is present. Kidneys: No hydronephrosis. Normal is less than 5 mm in 2nd trimester, less than 7 mm in 3rd trimester. Cord: 3 vessel cord has orthotopic insertion. Bladder: Normal in size. Extremities: All 4 extremities are visualized. IMPRESSION: Appropriate interval growth, no anomaly seen. Current estimated weight is at the 17th per centile. Normal amniotic fluid volume. Reviewed by: Bravo Rush MD on 08/22/2020 3:36 PM PDT Approved by: Bravo Rush MD on 08/22/2020 3:36 PM PDT Station ID: [id number]
== END 2020-08-22 13:37 | disposition home or self-care (01) ==
LOC: DI 13:36
PROVIDERS: ATTEND Obstetrics & Gynecology
DX: Z34.80 Encounter for supervision of other normal pregnancy, unspecified trimester (principal); Z36.89 Encounter for other specified antenatal screening

== ENCOUNTER 2020-10-03 17:55 | Outpatient (CLI) | payer BC, MEDICAID ==
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
== END 2020-10-03 18:45 | disposition home or self-care (01) ==
LOC: WFO 17:55 → FBP 17:58 → WFO 18:45
PROVIDERS: ATTEND Obstetrics & Gynecology
DX: O99.342 Other mental disorders complicating pregnancy, second trimester (principal); F41.9 Anxiety disorder, unspecified
CPT/HCPCS: 99212; 99213

== ENCOUNTER 2020-11-05 21:03 | Outpatient (CLI) | payer BC, MEDICAID ==
[2020-11-05] MEDS ORDERED: TETANUS/DIPHTHERIA/PERTUSSIS 0.5 ML SYRINGE IM ONE (21:36)
[2020-11-05 22:03] LABS: BILIRUBIN,URINE NEGATIVE (NEGATIVE); GLUCOSE, URINE (UA) NEGATIVE (NEGATIVE); KETONES,URINE (UA) NEGATIVE (NEGATIVE); LEUKOCYTE ESTERASE, URINE SMALL (NEGATIVE); NITRITE,URINE POSITIVE (NEGATIVE); OCCULT BLOOD,URINE NEGATIVE (NEGATIVE); PROTEIN,URINE NEGATIVE (NEGATIVE); UROBILINOGEN,URINE 0.2 (NORMAL) E.U./dL (NORMAL)
[2020-11-05 22:12] LABS: CREATININE,URINE 60.4 mg/dL; PROTEIN/CREATININE RATIO,URINE 0.2 (<=0.2)
[2020-11-05 22:19] LABS: CLARITY,URINE HAZY (CLEAR)
[2020-11-05 22:20] LABS: BACTERIA,URINE Few /HPF (None Seen); RBC,URINE 0-5 /HPF (0-5); SQUAMOUS EPITHELIAL CELL,UR MOD Squamous (<= Few)
[2020-11-05 22:57] LABS: BASOPHILS % (AUTO) 0.1 %; EOSINOPHILS # (AUTO) 0.1 10^3/uL (0.0-0.7); EOSINOPHILS % (AUTO) 0.8 %; HCT - HEMATOCRIT 32.6 % (37.0-47.0); HGB - HEMOGLOBIN 10.7 g/dL (12.0-16.0); LYMPHOCYTES # (AUTO) 2.3 10^3/uL (1.5-3.5); LYMPHOCYTES % (AUTO) 19.2 %; MEAN CORPUSCULAR HEMOGLOBIN 31.3 pg (27.0-31.0); MEAN CORPUSCULAR HGB CONC 32.8 g/dL (32.0-36.0); MEAN CORPUSCULAR VOLUME 95.3 fL (81.0-99.0); MEAN PLATELET VOLUME 9.4 fL (7.9-10.8); MONOCYTES # (AUTO) 0.9 10^3/uL (0.0-1.0); MONOCYTES % (AUTO) 7.2 %; NEUTROPHILS # (AUTO) 8.5 10^3/uL (1.5-6.6); NEUTROPHILS % (AUTO) 72.1 %; PLT - PLATELET COUNT 299 10^3/uL (130-450); RED BLOOD COUNT 3.42 10^6/uL (4.20-5.40); RED CELL DISTRIBUTION WIDTH 13.1 % (12.0-15.0); WHITE BLOOD COUNT 11.8 x10^3/uL (4.8-10.8)
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
[2020-11-05 23:08] VITALS: BP 118/74
--- NOTE | 2020-11-05 23:32 | PROCEDURE REPORT ---
- HPI Diagnosis/Indication for NST: Gestational Hypertension Current EDU 01/07/21 Gestation 31 Weeks and 0 Days 5 Para 1 Vital Signs Temperature 98.1 F 11/05/20 21:13 Heart Rate 97 11/05/20 21:13 Respiratory Rate 16 11/05/20 21:13 Blood Pressure 137/85 H 11/05/20 21:13 O2 Saturation 99 11/05/20 21:13 Temperature 98.1 F 11/05/20 21:13 Heart Rate 88 11/05/20 23:07 Respiratory Rate 16 11/05/20 21:13 Blood Pressure 118/74 11/05/20 23:07 O2 Saturation 99 11/05/20 21:13 - NST Procedure START: 22:41 STOP 23:06 EFN 145 mod rebeka 15x15 accels no decels TOCO: quiet - Results and Plan Findings/Impression: Patient is a 25 you at 31+0 wga with c/f hypertension and scant care Please see OB outpatient visit for detail of evaluation Does not meet criteria for Pre-eclampsia CAT I tracing DX: IUP at 31+0 wga Scant care Vision change BLE edema Rule out pre-eclampsia
[2020-11-06 11:45] LABS: ESTIMATED AVERAGE GLUCOSE 97 mg/dL (70-100)
[2020-11-07 14:31] LABS: HIV AG/AB 4TH GEN NON-REACTIVE (NON-REACTIVE)
[2020-11-07 15:01] LABS: HEPATITIS B SURFACE ANTIGEN NON-REACTIVE (NON-REACTIVE)
== END 2020-11-05 23:21 | disposition home or self-care (01) ==
LOC: WFO 21:03 → FBP 21:05 → WFO 23:21
PROVIDERS: ATTEND Obstetrics & Gynecology
DX: O13.3 Gestational [pregnancy-induced] hypertension without significant proteinuria, third trimester (principal); Z3A.31 31 weeks gestation of pregnancy; O99.013 Anemia complicating pregnancy, third trimester; D64.9 Anemia, unspecified; O23.43 Unspecified infection of urinary tract in pregnancy, third trimester; O09.33 Supervision of pregnancy with insufficient antenatal care, third trimester; O09.13 Supervision of pregnancy with history of ectopic pregnancy, third trimester; Z90.79 Acquired absence of other genital organ(s)
CPT/HCPCS: 36415; 81001; 81003; 82570; 82950; 83036; 84156; 85025; 86762; 86780; 86787; 86900; 86901; 87086; 87340; 87389; 87491; 87591; 87661; 99213; 99214

== ENCOUNTER 2021-01-01 19:28 | Inpatient (IN) | payer BC, MEDICAID ==
--- NOTE | 2021-01-01 20:04 | HISTORY & PHYSICAL EXAMINATION ---
Admit History - Visit Reason Visit Reason: Membranes rupture - Complications This : positive: <than 3 visits Smoking Status: Current every day smoker - Mother's Labs Mother's Blood Type: positive: A Mother's RH: positive: Positive GBS: positive: Other Rubella Status: positive: Immune - Other Maternal History Other Maternal History: ID: Patient is a 25 yo at 39+1 by 6 week us. HPI: Patient presents to L&D via EMS, reporting active labor. Very uncomfortable and unable to provide clear history. Dating is based on us 05/15/20 at 6w1d giving HAYDEN 01/07/21; images not available. Patient has had scant care and was last seen in clinic on 07/25/2020. She has been seen in triage on 11/05/20 and had completed the bulk of her care at that time. Declined TDAP. GBS unknown. Was able to obtain FAS on 08/22/20. EFW 17%ile, anterior placenta, 3VC, FAS wnl. This represents the only formal imaging available for . Declines Utox; denies exposure to cocaine/meth/opioids PNC: DATING: Last menstrual period (LMP): Not available. LMP-based estimated date of delivery (HAYDEN): Not available. First dating scan (date and location): 05/15/2020. Estimated date of delivery (HAYDEN) from first dating scan: 01/07/2021. A pos/Rub imm/VZV imm HepBsAg neg/RPR neg/HIV neg/GCCT neg at start of Glucola 73 TDAP declined Confirmed FAS completed 08/22/20 (anterior, 17%ile, CL 3.7, 3VC) Boy Previously denied HSV hx. OB HX: G1: 05/13/2014 at 40+3, , epidural, female 6lb 9 oz ;Adeliade G2: 02/23 medical TAB at 6 wga G3 02/24 TAB via D&C at < 6 weeks G4: 11/26 ectopic; lsc salpingectomy, right G5: current Denies HSV; hx of CT. Neg screen 07/28. Pap 07/28 NILM PMH: Migraines ADHD Ectopic 2019 PSH: lsc right sided salpingectomy SOC HX: Lives with daughter No SALVADOR Caffeine Use: 3 drinks per day Exercise: yes Seatbelt Use: 100 % Sun Exposure: occasionally ROS: As per HPI, otherwise remaining systems are negative PE: VS 123/58 75 97.7 GEN: very uncomfortable with contractions HEENT: NCAT CV: RRR RESP: CTAB ABD: gravid, S&NT/ND. EXT: BLE edema, NT NEURO: A&O PSYCH: high anxiety 2/2 pain DEBURR OPERATOR: NEFG. NL BSUMA. No lesions SVE 4/C/+1 Bulging CHARLES EFM 120 mod rebeka 15x15 accels no decels; CAT I/AGA TOCO: Q3-4 MIN A/P: Patient is a 25 yo at 39+1 here with ROM and labor LABOR: Patient in active labor -Reports large LOF at home -Unable to read ROM+ 2/2 mucus; appears ruptured. Reports time of ROM to be 15:30 -Expectant management -Augment with pitocin as indicated PNC: Scant care without lab work completed -A positive -Rub imm -Confirmed pap and GCCT were completed at initial visit -Confirmed FAS completed 08/22/20 (anterior, 17%ile, CL 3.7, 3VC) -Declined TDAP despite credit support counselor -Glucola; 73 -GBS and GCCT collected at admit -Ampicillin for GBS unknown -Declines Utox ANEMIA: Improved this presentation with HCT 36 -Iron supplement ordered to RA Betancourt FWB: Cat I tracing/ vertex/GBS unknown -EFW 17%ile -Ampicillin for GBS ppx given unknown status; GBS PCR pending PAIN: Poor tolerance of labor pain -Declines fentanyl -Nitrous oxide currently administered -Epidural at first MANAGER ORANGE availability In patient care Meds/Allgy - Home Medications Home Medications: Ambulatory Orders Medication Instructions Recorded Confirmed Pnv No.95/Ferrous Fum/Folic AC 1 tab PO DAILY 08/15/20 08/15/20 [ Caplet] Ferrous Sulfate 325 mg PO DAILY #90 tab 11/05/20 Nitrofurantoin [Macrobid] 100 mg PO BID 5 Days #10 cap 11/05/20 - Allergies Allergies/Adverse Reactions: Allergies Allergy/AdvReac Type Severity Reaction Status Date / Time No Known Drug Allergies Allergy Verified 07/31/20 22:30
[2021-01-01] MEDS ORDERED: miSOPROStoL 200 MCG TABLET BC PRN (20:05)
[2021-01-01] MEDS ORDERED: METHYLERGONOVINE 0.2 MG/ML VIAL IM PRN (20:05)
[2021-01-01] MEDS ORDERED: TERBUTALINE 1 MG/ML VIAL SUBQ PRN (20:05)
[2021-01-01] MEDS ORDERED: LIDOCAINE-MPF 1% 30 ML VIAL ID PRN (20:05)
[2021-01-01] MEDS ORDERED: CARBOPROST TROMETHAMINE 250 MCG/ML AMP IM PRN (20:05)
[2021-01-01] MEDS ORDERED: AMPICILLIN 2 GM in SODIUM CHLORIDE 0.9% MINIBAG 100 ML IV ONE (20:05)
[2021-01-01] MEDS ORDERED: METOCLOPRAMIDE 10 MG/2 ML VIAL IVP PRN ×3 (20:05→21:32)
[2021-01-01] MEDS ORDERED: hydrALAZINE INJ 20 MG/ML VIAL IVP PRN ×2 (20:05)
[2021-01-01] MEDS ORDERED: SODIUM CHLORIDE FLUSH 0.9% 10 ML SYRINGE IVP PRN (20:05)
[2021-01-01] MEDS ORDERED: OXYTOCIN 10 UNIT/ML VIAL IM PRN (20:05)
[2021-01-01] MEDS ORDERED: OXYTOCIN/SODIUM CHLORIDE 500 ML IV PRN (20:05)
[2021-01-01] MEDS ORDERED: TRANEXAMIC ACID IN NACL 1,000 MG/100 ML BAG IV PRN (20:05)
[2021-01-01] MEDS ORDERED: LABETALOL 20 MG/4 ML SYRINGE IVP PRN ×3 (20:05)
[2021-01-01] MEDS ORDERED: NIFEdipine 10 MG CAPSULE PO PRN (20:05)
[2021-01-01] MEDS ORDERED: ONDANSETRON 4 MG/2 ML VIAL IVP PRN ×3 (20:05→21:32)
[2021-01-01] MEDS ORDERED: LACTATED RINGERS 1,000 ML IV ONE (20:13)
[2021-01-01 20:17] LABS: BASOPHILS % (AUTO) 0.2 %; EOSINOPHILS % (AUTO) 0.2 %; HGB - HEMOGLOBIN 11.6 g/dL (12.0-16.0); LYMPHOCYTES # (AUTO) 2.2 10^3/uL (1.5-3.5); LYMPHOCYTES % (AUTO) 18.5 %; MEAN CORPUSCULAR HGB CONC 32.2 g/dL (32.0-36.0); MEAN PLATELET VOLUME 10.4 fL (7.9-10.8); MONOCYTES % (AUTO) 8.2 %; NEUTROPHILS # (AUTO) 8.5 10^3/uL (1.5-6.6); NEUTROPHILS % (AUTO) 71.8 %; PLT - PLATELET COUNT 354 10^3/uL (130-450); RED BLOOD COUNT 4.14 10^6/uL (4.20-5.40); RED CELL DISTRIBUTION WIDTH 14.2 % (12.0-15.0); WHITE BLOOD COUNT 11.9 x10^3/uL (4.8-10.8)
[2021-01-01] MEDS ORDERED: BUPIVACAINE 0.25% PF 10 ML VIAL ONE (20:48)
[2021-01-01] MEDS ORDERED: fentaNYL 100 MCG/2 ML VIAL ONE (20:48)
[2021-01-01] MEDS ORDERED: ROPIVACAINE 0.2% 200 MG/100 ML BAG EP ONE (20:48)
[2021-01-01] MEDS ORDERED: LACTATED RINGERS 1,000 ML IV SCH (21:00)
[2021-01-01] MEDS ORDERED: OXYTOCIN/SODIUM CHLORIDE 500 ML IV SCH (21:00)
[2021-01-01] MEDS ORDERED: NALOXONE 0.4 MG/ML VIAL IVP PRN ×2 (21:30→21:32)
[2021-01-01] MEDS ORDERED: NALBUPHINE 10 MG/ML AMP IVP PRN ×2 (21:30→21:32)
[2021-01-01] MEDS ORDERED: ePHEDrine 50 MG/ML VIAL IVP PRN ×2 (21:30→21:32)
[2021-01-01] MEDS ORDERED: diphenhydrAMINE INJ 50 MG/ML VIAL IVP PRN ×2 (21:30→21:32)
--- NOTE | 2021-01-01 21:30 | ANESTHESIA ---
Pre-Anesthesia VS, & Labs - Diagnosis active labor - Procedure labor epidural Vital Signs: Temp Pulse Resp BP Pulse Ox 36.5 C 01/01/21 20:01 Height: 5 ft 3 in Weight (kg): 68.266 kg Body Mass Index: 26.6 BMI Classification: Overweight - NPO >8 hours - Is Patient ?: Yes - Lab Results Current Lab Results: Laboratory Tests 01/01/21 19:50: Blood Type A POSITIVE, Antibody Screen NEGATIVE 01/01/21 19:50: WBC 11.9 H, RBC 4.14 L, Hgb 11.6 L, Hct 36.0 L, MCV 87.0, MCH 28.0, MCHC 32.2, RDW 14.2, Plt Count 354, MPV 10.4, Neut # (Auto) 8.5 H, Lymph # (Auto) 2.2, Harmon # (Auto) 1.0, Eos # (Auto) 0.0, Baso # (Auto) 0.0, Absolute Nucleated RBC 0.00, Nucleated RBC % 0.0 Lab results reviewed: Yes Fish Bones: 01/01/21 19:50 Home Medications and Allergies Active Medications Carboprost Tromethamine (Carboprost Tromethamine 250 Mcg/Ml Amp) 250 mcg IM Q15M PRN PRN Reason: Step 4: Hemorrhage protocol Stop: 01/06/21 20:06 Hydralazine HCl (Hydralazine Inj 20 Mg/Ml Vial) 5 - 20 mg IVP Q20M PRN; Protocol PRN Reason: SBP >160 or DBP >110 Hydralazine HCl (Hydralazine Inj 20 Mg/Ml Vial) 10 mg IVP .ONCE PRN; Protocol PRN Reason: Step 9 of Labetalol protocol Stop: 01/06/21 20:09 Oxytocin/Sodium Chloride (Pitocin/Sodium Chloride) 500 mls @ 999 mls/hr IV PRN PRN; Protocol PRN Reason: POST- HEMORR PREVENTION Stop: 01/06/21 20:06 Tranexamic Acid (Tranexamic 1,000 Mg/100ml-Nacl) 1,000 mg in 100 mls @ 600 mls/hr IV .ONCE PRN PRN Reason: EBL >1200mL and within 3hr Stop: 01/06/21 20:06 Ampicillin Sodium 1 gm/ Sodium (Chloride) 100 mls @ 200 mls/hr IV Q4H TAVARES Oxytocin/Sodium Chloride (Pitocin/Sodium Chloride) 500 mls @ 1 mls/hr IV TITR TAVARES; Protocol Lactated Ringer's (Lr) 1,000 mls @ 150 mls/hr IV .Q6H40M TAVARES Labetalol HCl (Labetalol 20 Mg/4 Ml Syringe) 20 - 80 mg IVP Q10M PRN; Protocol PRN Reason: SBP >160 or DBP >110 Labetalol HCl (Labetalol 20 Mg/4 Ml Syringe) 20 mg IVP .ONCE PRN; Protocol PRN Reason: Step 9 of nifedipine protocol Stop: 01/06/21 20:09 Labetalol HCl (Labetalol 20 Mg/4 Ml Syringe) 40 mg IVP .ONCE PRN; Protocol PRN Reason: Step 9 of hydrALAZine protocol Stop: 01/06/21 20:09 Lidocaine HCl (Lidocaine-Mpf 1% 30 Ml Vial) 30 ml ID .ONCE PRN PRN Reason: PERINEAL REPAIR Stop: 01/06/21 20:06 Methylergonovine Maleate (Methylergonovine 0.2 Mg/Ml Vial) 0.2 mg IM .ONCE PRN PRN Reason: Step 2: Hemorrhage protocol Stop: 01/06/21 20:06 Metoclopramide HCl (Metoclopramide 10 Mg/2 Ml Vial) 10 mg IVP Q6H PRN PRN Reason: Nausea / Vomiting Misoprostol (Misoprostol 200 Mcg Tablet) 800 mcg BC .ONCE PRN PRN Reason: Step 3: Hemorrhage protocol Stop: 01/06/21 20:06 Nifedipine (Nifedipine 10 Mg Capsule) 10 - 20 mg PO Q20M PRN; Protocol PRN Reason: SBP >160 or DBP >110 Ondansetron HCl (Ondansetron 4 Mg/2 Ml Vial) 4 mg IVP Q4H PRN PRN Reason: Nausea / Vomiting Oxytocin (Oxytocin 10 Unit/Ml Vial) 10 unit IM .ONCE PRN PRN Reason: Step one: If no IV access Stop: 01/06/21 20:06 Sodium Chloride (Sodium Chloride Flush 0.9% 10 Ml Syringe) 10 ml IVP PRN PRN PRN Reason: NEEDED PER PROVIDER ORDERS Sodium Chloride (Sodium Chloride Flush 0.9% 10 Ml Syringe) 10 ml IVP 0100,0900,1700 TAVARES Terbutaline Sulfate (Terbutaline 1 Mg/Ml Vial) 0.25 mg SUBQ Q1H PRN PRN Reason: tachysystole Pnv No.95/Ferrous Fum/Folic AC [ Caplet] 1 tab PO DAILY 08/15/20 Allergies/Adverse Reactions: Allergies Allergy/AdvReac Type Severity Reaction Status Date / Time No Known Drug Allergies Allergy Verified 07/31/20 22:30 Anes History & Medical History - Anesthetic History Anesthesia Complications: reports: No previous complications Family history of Anesthesia Complications: Denies Family history of Malignant Hyperthermia: Denies - Medical History Cardiovascular: reports: None Pulmonary: reports: None Gastrointestinal: reports: None Urinary: reports: None Neuro: reports: None Musculoskeletal: reports: None Endocrine/Autoimmune: reports: None Blood Disorders: reports: None Skin: reports: None Smoking Status: Current every day smoker - Surgical History Gynecologic: reports: Other Exam General: Severe distress Plan Anesthesia Type: Epidural Consent for Procedure(s) Verified and Reviewed: Yes Code Status: Attempt Resuscitation ASA classification: 2-Mild systemic disease Is this case an emergency?: No
[2021-01-01] MEDS ORDERED: ROPIVACAINE 0.2% 200 MG/100 ML BAG EP PRN (21:32)
--- NOTE | 2021-01-01 21:40 | PROVIDER PROGRESS NOTE ---
Subjective - Prog Note Date Prog Note Date: 01/01/21 Prog Note Time: 21:38 - Subjective Subjective: Patient more comfortable with epidural and nitrous Last SVE 6/C/+2 with bulging CHARLES Change in baseline EFM: 115 mod rebeka 15x15 accels, occ rebeka TOCO: Q5 min Ampicillin running Cont with expt management Objective - Vital Signs/Intake & Output Vital Signs: Vital Signs x48h Temp 01/01/21 20:01 97.7 F - Lab Results Fish Bones: 01/01/21 19:50 Other Labs: Lab Results x24hrs 01/01/21 01/01/21 Range/Units 19:50 19:50 WBC 11.9 H (4.8-10.8) x10^3/uL RBC 4.14 L (4.20-5.40) 10^6/uL Hgb 11.6 L (12.0-16.0) g/dL Hct 36.0 L (37.0-47.0) % MCV 87.0 (81.0-99.0) fL MCH 28.0 (27.0-31.0) pg MCHC 32.2 (32.0-36.0) g/dL RDW 14.2 (12.0-15.0) % Plt Count 354 (130-450) 10^3/uL MPV 10.4 (7.9-10.8) fL Neut # (Auto) 8.5 H (1.5-6.6) 10^3/uL Lymph # (Auto) 2.2 (1.5-3.5) 10^3/uL Childress # (Auto) 1.0 (0.0-1.0) 10^3/uL Eos # (Auto) 0.0 (0.0-0.7) 10^3/uL Baso # (Auto) 0.0 (0.0-0.1) 10^3/uL Absolute Nucleated RBC 0.00 x10^3/uL Nucleated RBC % 0.0 /100WBC Blood Type A POSITIVE Antibody Screen NEGATIVE
[2021-01-01 22:59] LABS: CHLAMYDIA TRACHOMATIS DNA NEGATIVE (NEGATIVE); NEISSERIA GONORRHOEAE DNA NEGATIVE (NEGATIVE); TRICHOMONAS VAGINALIS DNA NEGATIVE (NEGATIVE)
[2021-01-02] MEDS ORDERED: AMPICILLIN 1 GM in SODIUM CHLORIDE 0.9% MINIBAG 100 ML IV SCH ×2
[2021-01-02] MEDS ORDERED: ONDANSETRON ODT 4 MG TABLET TL PRN (00:13)
[2021-01-02] MEDS ORDERED: SIMETHICONE CHEW 80 MG TABLET PO PRN (00:13)
[2021-01-02] MEDS ORDERED: HYDROCORTISONE 1% CREAM 28 GM TUBE PR PRN (00:13)
--- NOTE | 2021-01-02 00:18 | DELIVERY NOTE ---
Delivery Note - Labor Labor: positive: Spontaneous - Delivery Method Delivery Method: positive: Spontaneous vaginal delivery - Presentation Presentation: positive: Vertex, Compound, KIRILL - right occiput anterior - Nuchal Cord Nuchal Cord: positive: None - Anesthetic Anesthetic Type: - Amniotic Fluid Description Amniotic Fluid Description: positive: Clear - Episiotomy Type Episiotomy Type: positive: None - Laceration Laceration: positive: None - Delivery Outcome Delivery Outcome: positive: Livebirth - : positive: Placed in direct skin contact with mother, Warmed, [place] used sex: positive: Male - Cord Cord: positive: 3 vessels - Placenta Placenta: positive: Intact, Expressed - Estimated Blood Loss Estimated Blood Loss (in cc): 100 (minimal) - Post Delivery Events Post Delivery Events: positive: No post delivery events - Delivery Comments (Free Text/Narrative) Delivery Comments (Free Text/Narrative): STAGE I: Patient is a 25 yo at 39+1 wga by 6 week us that arrrived via EMS in active labor at approximately 19:29. Reported SROM at 15:30 am on 04/03/21. ROM+ was not readable due to presence of mucus but gross rupture with clear fluid was noted. Initial SVE was 4/C/+2 station with bulging lower uterine segment. GBS was unknown, swab for PCR was obtained and patient was started on ampicillin for prophylaxis. She received one dose of ampicillin. Was markedly uncomfortable and received nitrous oxide for pain management until an epidural was placed. No pitocin augmentation was indicated. Category I tracing with periods of Cat II due to intermittent variables. Patient was noted to be complete at 23:30 pm on 04/03/21. STAGE II: Patient was complete at 23:30. She pushed well over one contraction to deliver a viable male infant at 23:37. delivered from KIRILL presentation with left shoulder anterior and compound presentation with the left hand presenting posteriorly in front of the face (left arm wrapped completely across chest). No nuchal cord. was delivered easily to mother's abdomen. Cord was clamped x2 and cut by FOB after pulsations had ceased. Apgars 9/9 with weight pending. STAGE III: Placenta delivered at 23:42 with manual expression. It was examined and found to be intact. Perineum was examined and no lacerations were noted. EBL minimal, reported as 100 mL. Procedure was well tolerated and without complication.
--- NOTE | 2021-01-02 00:30 | DISCHARGE SUMMARY ---
<Joanie Knight - Last Filed: 01/02/21 00:30> Discharge Summary Admit Date: 01/01/21 Condition at Discharge: Good Discharge Disposition: 01 Home, Self Care - DIAGNOSES Admission Diagnoses: IUP at 39+1 wga Spontaneous rupture of membranes Active labor Discharge Diagnoses with Status of Each Condition: Same and delivery of term gestation - HPI History of Present Illness: Patient is a 25 yo at 39+1 wga by 6 week us that arrived via EMS in active labor at approximately 19:29. Reported SROM at 15:30 am on 04/03/21. Initial SVE 4/C/+2 with bulging lower uterine segment. Disjointed care - HOSPITAL COURSE Hospital Course: STAGE I: Patient is a 25 yo at 39+1 wga by 6 week us that arrrived via EMS in active labor at approximately 19:29. Reported SROM at 15:30 am on 04/03/21. ROM+ was not readable due to presence of mucus but gross rupture with clear fluid was noted. Initial SVE was 4/C/+2 station with bulging lower uterine segment. GBS was unknown, swab for PCR was obtained and patient was started on ampicillin for prophylaxis. She received one dose of ampicillin. Was markedly uncomfortable and received nitrous oxide for pain management until an epidural was placed. No pitocin augmentation was indicated. Category I tracing with periods of Cat II due to intermittent variables. Patient was noted to be complete at 23:30 pm on 04/03/21. STAGE II: Patient was complete at 23:30. She pushed well over one contraction to deliver a viable male infant at 23:37. Infant delivered from KIRILL presentation with left shoulder anterior and compound presentation with the left hand presenting posteriorly in front of the face (left arm wrapped completely across chest). No nuchal cord. was delivered easily to mother's abdomen. Cord was clamped x2 and cut by FOB after pulsations had ceased. Apgars 9/9 with weight pending. STAGE III: Placenta delivered at 23:42 with manual expression. It was examined and found to be intact. Perineum was examined and no lacerations were noted. EBL minimal, reported as 100 mL. Procedure was well tolerated and without complication. Rh positive/Rubella immune - ALLERGIES Allergies/Adverse Reactions: Allergies Allergy/AdvReac Type Severity Reaction Status Date / Time No Known Drug Allergies Allergy Verified 07/31/20 22:30 - MEDICATIONS Home Medications: Ambulatory Orders Medication Instructions Recorded Confirmed Pnv No.95/Ferrous Fum/Folic AC 1 tab PO DAILY 08/15/20 08/15/20 [ Caplet] Ferrous Sulfate 325 mg PO DAILY #90 tab 11/05/20 Nitrofurantoin [Macrobid] 100 mg PO BID 5 Days #10 cap 11/05/20 Acetaminophen [Acetaminophen Extra 1,000 mg PO Q8H PRN #60 tablet 01/02/21 Strength] Docusate Sodium 100Mg Capsule 100 - 200 mg PO BID PRN #60 cap 01/02/21 [Colace 100Mg Capsule] Ibuprofen [Motrin] 600 mg PO Q6H PRN #60 tab 01/02/21 - LABS Result Diagrams: 01/01/21 19:50 - FOLLOW UP Follow Up: FU with Dr. Knight in one week <Nicolás Correa - Last Filed: 01/03/21 10:04> Discharge Summary - HOSPITAL COURSE Hospital Course: Patient had an uneventful course and is doing well. Patient is ambulating, urinating and tolerating a regular diet. Patient's pain is controlled with Ibuprofen and Tylenol. Patient is ready to be discharged. . - PHYSICAL EXAM AT DISCHARGE General Appearance: positive: No acute distress Eyes Bilateral: positive: Normal inspection Neck: positive: Nml inspection Respiratory: positive: Chest non-tender, Breath sounds nml. negative: Wheezes, Rales, Rhonchi Cardiovascular: positive: Regular rate & rhythm, No murmur, No gallop Abdomen: positive: Non-tender, Nml bowel sounds, Other (Fundus is firm and below the umbilicus by two finger breadth. Non-tender to palpation.) Skin: positive: Color nml, No rash Extremities: positive: Non-tender, No pedal edema. negative: Calf tenderness Neurologic/Psychiatric: positive: Oriented x3, Mood/affect nml Reflexes: Knee (R): 2+ - LABS Result Diagrams: 01/01/21 19:50 - QUALITY (Female Hip Fx Only) Was patient sent home on osteoporosis medication?: No - FOLLOW UP Follow Up: Discharge to home with Pelvic Rest. Regular diet. Ibuprofen 600mg every 6 hours with food prn cramping/pain. Stay well hydrated. Tylenol can be utilized with Ibuprofen. Call for fever, chills, nausea, vomiting, headache, blurred vision or heavy bleeding. - TIME SPENT Time Spent in Discharge (Minutes): 30
--- NOTE | 2021-01-02 00:35 | Discharge Plan ---
Discharge Plan Problem Reviewed?: Yes Disposition: Home, Self Care Condition: Good Prescriptions: Acetaminophen [Acetaminophen Extra Strength] 1,000 mg PO Q8H PRN #60 tablet PRN Reason: Pain Docusate Sodium 100Mg Capsule [Colace 100Mg Capsule] 100 - 200 mg PO BID PRN #60 cap PRN Reason: Constipation Ibuprofen [Motrin] 600 mg PO Q6H PRN #60 tab PRN Reason: Pain Activity Restrictions: Additional Comments (Nothing in the vagina for 6 weeks: No intercourse, tampons, douching Call for: -Fever greater than 100.5 - Pain that does not improve with pain medication -Heavy bleeding in which you are soaking a pad an hour for 2 hours in a row No tub baths or hot tubs for 4 weeks) Shower Restrictions: No (OK to shower. No tub baths for 4 weeks) Additional Instructions or Follow Up instructions: Ibuprofen 600 mg by mouth every 6 hours as needed for pain Acetaminophen 500-1000 mg by mouth every 8 hours as needed for pain Docusate 100-200 mg by mouth twice a day as needed for constipation No Smoking: If you smoke, Please STOP! Call for help. Follow-up with: Joanie Knight MD [Provider Admit Priv/Credential] -
[2021-01-02] MEDS ORDERED: LACTATED RINGERS 1,000 ML IV SCH (01:00)
[2021-01-02] MEDS ORDERED: SODIUM CHLORIDE FLUSH 0.9% 10 ML SYRINGE IVP SCH (01:00)
[2021-01-02] MEDS ORDERED: diphenhydrAMINE 25 MG CAPSULE PO PRN (02:20)
[2021-01-02] MEDS: ACETAMINOPHEN 500 MG TABLET PO PRN ×2 (08:27→16:58)
[2021-01-02] MEDS: DOCUSATE SODIUM 100 MG CAPSULE PO PRN ×2 (08:28→21:10)
[2021-01-02] MEDS: IBUPROFEN 600 MG TABLET PO PRN ×3 (08:28→21:15)
[2021-01-03] MEDS: ACETAMINOPHEN 500 MG TABLET PO PRN ×2 (00:55→09:31)
[2021-01-03] MEDS: IBUPROFEN 600 MG TABLET PO PRN ×2 (03:30→09:31)
[2021-01-03] MEDS: DOCUSATE SODIUM 100 MG CAPSULE PO PRN (09:31)
[2021-01-03 09:32] VITALS: BP 127/83
[2021-01-04] MEDS ORDERED: PRENATAL VITAMIN TABLET PO SCH (08:00)
[2021-01-04] MEDS ORDERED: FERROUS SULFATE 325 MG TABLET PO SCH (08:00)
== END 2021-01-03 12:10 | disposition home or self-care (01) | DRG 806 ==
LOC: WFO 19:28 → FBP 19:28 → WFO 19:36 → UNDOADMIN 19:37 → FBP 19:37
PROVIDERS: ADMIT Obstetrics & Gynecology; ATTEND Obstetrics & Gynecology
PROC: 10E0XZZ Delivery of Products of Conception, External Approach (ICD-10-PCS; principal; 2021-01-01)
DX: O32.6XX0 Maternal care for compound presentation, not applicable or unspecified (principal); O23.43 Unspecified infection of urinary tract in pregnancy, third trimester; Z37.0 Single live birth; O99.334 Smoking (tobacco) complicating childbirth; O99.02 Anemia complicating childbirth; D64.9 Anemia, unspecified; Z3A.39 39 weeks gestation of pregnancy
CPT/HCPCS: 36415; 85025; 86850; 86900; 86901; 87491; 87591; 87635; 87661; 87797; A9270; J7120; 84112

== ENCOUNTER 2021-01-20 08:47 | Outpatient (CLI) | payer BC, MEDICAID | END 2021-01-20 08:48 | disposition EMS.NT | LOC: EMS 08:47 | DX: O9A.23 Injury, poisoning and certain other consequences of external causes complicating the puerperium (principal); S09.92XA Unspecified injury of nose, initial encounter; V89.2XXA Person injured in unspecified motor-vehicle accident, traffic, initial encounter; Y93.89 Activity, other specified; Y92.413 State road as the place of occurrence of the external cause ==

== ENCOUNTER 2021-01-20 09:41 | Emergency (ER) | payer BC, MEDICAID ==
[2021-01-20 10:25] VITALS: BP 130/62
[2021-01-20] MEDS ORDERED: OXYMETAZOLINE HCL 100 SPRAYS BOTTLE NAS STA (11:10)
[2021-01-20] MEDS ORDERED: ACETAMINOPHEN 325 MG TABLET PO STA (11:10)
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
== END 2021-01-20 12:16 | disposition home or self-care (01) ==
LOC: ED 09:41
DX: O9A.23 Injury, poisoning and certain other consequences of external causes complicating the puerperium (principal); S02.2XXA Fracture of nasal bones, initial encounter for closed fracture; S06.9X0A Unspecified intracranial injury without loss of consciousness, initial encounter; J34.2 Deviated nasal septum; V89.2XXA Person injured in unspecified motor-vehicle accident, traffic, initial encounter; Y93.89 Activity, other specified; Y92.410 Unspecified street and highway as the place of occurrence of the external cause; O99.335 Smoking (tobacco) complicating the puerperium; F17.200 Nicotine dependence, unspecified, uncomplicated
CPT/HCPCS: 70486; 99284; A9270

== ENCOUNTER 2021-01-24 08:00 | Outpatient (CLI) | payer BC, MEDICAID | END 2021-01-24 23:59 | disposition home or self-care (01) | LOC: LAB 08:00 | PROVIDERS: ATTEND Dentist Oral and Maxillofacial Surgery | DX: Z01.812 Encounter for preprocedural laboratory examination (principal); S02.2XXA Fracture of nasal bones, initial encounter for closed fracture; Z20.822 Contact with and (suspected) exposure to COVID-19 ==

== ENCOUNTER 2021-01-27 11:46 | Day surgery (SDC) | payer BC, MEDICAID ==
[~2021-01-27 11:46] MED LIST: CEFAZOLIN SODIUM IN 0.9 % NACL 2 GM/100 ML BAG IV ONE
[2021-01-27 12:17] LABS: HCG UR QUAL NEGATIVE
[2021-01-27] MEDS ORDERED: MORPHINE 2 MG/ML CARPUJECT IVP PRN (12:25)
[2021-01-27] MEDS ORDERED: fentaNYL 100 MCG/2 ML VIAL IVP PRN (12:25)
[2021-01-27] MEDS ORDERED: METOCLOPRAMIDE 10 MG/2 ML VIAL IVP PRN (12:25)
[2021-01-27] MEDS ORDERED: LACTATED RINGERS 1,000 ML IV ONE ×2 (12:25→14:10)
[2021-01-27] MEDS ORDERED: NALOXONE 0.4 MG/ML VIAL IVP PRN (12:25)
[2021-01-27] MEDS ORDERED: ATROPINE ABBOJECT 1 MG/10 ML SYRINGE IVP PRN (12:25)
[2021-01-27] MEDS ORDERED: HYDROmorphone 0.5 MG/0.5 ML SYRINGE IVP PRN (12:25)
[2021-01-27] MEDS ORDERED: ONDANSETRON 4 MG/2 ML VIAL IVP PRN (12:25)
[2021-01-27] MEDS ORDERED: ePHEDrine 50 MG/ML VIAL IVP PRN (12:25)
--- NOTE | 2021-01-27 12:25 | ANESTHESIA ---
Pre-Anesthesia VS, & Labs - Diagnosis nasal fx - Procedure closed reduction nasal fx Vital Signs: Temp Pulse Resp BP Pulse Ox 36.4 C L 87 14 112/86 H 100 01/27/21 12:10 01/27/21 12:10 01/27/21 12:10 01/27/21 12:10 01/27/21 12:10 Height: 5 ft 3 in Weight (kg): 60 kg Body Mass Index: 23.4 BMI Classification: Healthy weight - NPO Last Food Intake: cornbread @0600 - Is Patient ?: No - Lab Results Lab results reviewed: Yes Home Medications and Allergies Pnv No.95/Ferrous Fum/Folic AC [ Caplet] 1 tab PO DAILY 08/15/20 Allergies/Adverse Reactions: Allergies Allergy/AdvReac Type Severity Reaction Status Date / Time No Known Drug Allergies Allergy Verified 01/20/21 10:25 Anes History & Medical History - Anesthetic History Anesthesia Complications: reports: No previous complications Family history of Anesthesia Complications: Denies Family history of Malignant Hyperthermia: Denies - Medical History Cardiovascular: reports: None Pulmonary: reports: None Gastrointestinal: reports: None Urinary: reports: None Neuro: reports: None Musculoskeletal: reports: None Endocrine/Autoimmune: reports: None Blood Disorders: reports: None Skin: reports: None Smoking Status: Current every day smoker Other Past Medical History: currently 1mo old - Surgical History Gynecologic: reports: Other Exam General: Alert, Oriented x3, Cooperative Dental: WNL Mouth Openin Fingerbreadth Neck Mobility: Normal Mallampati classification: II Thyromental Distance: 4-6 cm Respiratory: Lungs clear, Normal breath sounds, No respiratory distress Cardiovascular: Regular rate Neurological: Normal speech Mental/Cognitive Status: Alert/Oriented X3, Normal for patient Cognitive Status: Within normal limits Plan Anesthesia Type: General Consent for Procedure(s) Verified and Reviewed: Yes Code Status: Attempt Resuscitation ASA classification: 2-Mild systemic disease Is this case an emergency?: No
[2021-01-27] MEDS ORDERED: MIDAZOLAM 2 MG/2 ML VIAL ONE (12:40)
[2021-01-27] MEDS ORDERED: PROPOFOL 200 MG/20 ML VIAL IVP ONE (12:41)
[2021-01-27] MEDS ORDERED: LIDOCAINE 2%-EPI 1:100000 20 ML MDV ONE (12:46)
[2021-01-27] MEDS ORDERED: OXYMETAZOLINE HCL 100 SPRAYS BOTTLE ONE (12:47)
[2021-01-27] MEDS ORDERED: LACTATED RINGERS 1,000 ML IV SCH (13:00)
[2021-01-27] MEDS ORDERED: LIDOCAINE 2%-EPI 1:100000 20 ML MDV SUBQ ONE ×2 (13:06)
[2021-01-27] MEDS ORDERED: DEXAMETHASONE 4 MG/ML VIAL ONE (13:35)
[2021-01-27] MEDS ORDERED: ONDANSETRON 4 MG/2 ML VIAL ONE (13:35)
[2021-01-27] MEDS ORDERED: BACITRACIN ZINC OINT 1 PACKET TOP ONE (13:56)
[2021-01-27] MEDS ORDERED: KETOROLAC 30 MG/ML VIAL IVP PRN (14:17)
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
[2021-01-27] MEDS ORDERED: oxyCODONE 5 MG TABLET PO PRN (14:26)
[2021-01-27] MEDS ORDERED: ACETAMINOPHEN 1,000 MG/100 ML 100 ML IV ONE (14:27)
[2021-01-27] MEDS: HYDROmorphone 1 MG/ML CARPUJECT ONE ×2 (14:31→14:43)
--- NOTE | 2021-01-27 14:55 | ANESTHESIA POST OP EVALUATION ---
Anesthesia Post Eval - Post Anesthesia Eval Vitals: Last Vital Signs Temp 36.7 C 01/27/21 14:35 Pulse 78 01/27/21 14:50 Resp 13 01/27/21 14:50 BP 133/81 H 01/27/21 14:50 Pulse Ox 97 01/27/21 14:50 CV Function Including HR & BP: Stable Pain Control: Satisfactory (pain meds in PACU) Nausea & Vomiting: Negative Mental Status: Baseline Respiratory Status: Airway Patent Hydration Status: Satisfactory Anesthesia Complications: None
[2021-01-27] MEDS ORDERED: oxyCODONE 5 MG TABLET ONE (15:31)
[2021-01-27 15:32] VITALS: BP 126/86
== END 2021-01-27 11:47 | disposition home or self-care (01) ==
LOC: SDS 11:46
PROVIDERS: ATTEND Dentist Oral and Maxillofacial Surgery
DX: S02.2XXA Fracture of nasal bones, initial encounter for closed fracture (principal); S06.9X0A Unspecified intracranial injury without loss of consciousness, initial encounter; V43.52XA Car driver injured in collision with other type car in traffic accident, initial encounter; Y92.410 Unspecified street and highway as the place of occurrence of the external cause; F17.210 Nicotine dependence, cigarettes, uncomplicated
CPT/HCPCS: 21320; 81025; A9270; J0131; J0690; J1170; J7120